=== PATIENT | female | born 1945 | race Caucasian/White ===

== ENCOUNTER → 2016-12-17 | Outpatient (CLI) | payer OTHER | LOC: FIMAGING 15:08 | PROVIDERS: ATTEND Internal Medicine | DX: Z12.31 Encounter for screening mammogram for malignant neoplasm of breast (principal) | CPT/HCPCS: G0202 ==

== ENCOUNTER 2017-02-28 11:04 | Inpatient (IN) | payer OTHER ==
[2017-02-28] MEDS ORDERED: ONDANSETRON 4 MG/2 ML VIAL IVP ONE (11:14)
[2017-02-28] MEDS ORDERED: NS 1,000 ML IV ONE (11:14)
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
[2017-02-28] MEDS ORDERED: methylPREDNISolone SOD SUCC 125 MG/2 ML VIAL IVP ONE (11:19)
--- NOTE | 2017-02-28 11:21 | CPEKG ---
Heart Rate: 52 RR Interval: 1154 P-R Interval: 148 QRSD Interval: 92 QT Interval: 496 QTC Interval: 462 P [place]: 72 QRS [place]: -7 T Wave [place]: 134 EKG Severity - ABNORMAL ECG - EKG Impression: SINUS RHYTHM EKG Impression: LVH WITH SECONDARY REPOLARIZATION ABNORMALITY Electronically Signed By: Fritz Rutherford 28-Feb-2017 11:36:18
[2017-02-28 11:22] LABS: % IMMATURE GRANULYOCYTES 0.2 % (0.0-1.1); ABSOLUTE IMMATURE GRANULOCYTES 0.01 10^3/uL (0.00-0.10); ADD DIFF? NO; ADD MORPH? NO; ADD SCAN? NO; ATYPICAL LYMPHOCYTE FLAG 0 (0-99); FRAGMENT RBC FLAG 20 (0-99); HEMATOCRIT 43.8 % (38.0-47.0); HEMOGLOBIN 13.6 g/dL (12.6-16.3); LEFT SHIFT FLG 0 (0-99); LIPEMIA HEMOLYSIS FLAG 80 (0-99); MEAN CELL HEMOGLOBIN 25.3 pg (27.9-34.1); MEAN CELL HEMOGLOBIN CONCENTR. 31.1 g/dL (32.4-36.7); MEAN CELL VOLUME 81.4 fL (81.5-99.8); MEAN PLATELET VOLUME 10.7 fL (8.7-11.7); PLATELET CLUMPS FLAG 10 (0-99); PLATELET COUNT 201 10^3/uL (150-400); RED BLOOD CELL COUNT 5.38 10^6/uL (4.18-5.33); RED CELL DISTRIBUTION WIDTH 18.6 % (11.5-15.2)
[2017-02-28 11:30] LABS: INR 0.98 (0.83-1.16); PROTIME(PATIENT) 12.9 SEC (12.0-15.0)
[2017-02-28 11:31] LABS: APTT 25.1 SEC (23.0-38.0)
[2017-02-28 11:36] LABS: ALANINE AMINOTRANSFERASE 32 IU/L (9-52); ALBUMIN 4.4 g/dL (3.5-5.0); ALKALINE PHOSPHATASE 214 IU/L (38-126); ANION GAP 18 mEq/L (8-16); ASPARTATE AMINOTRANSFERASE 37 IU/L (14-46); BILIRUBIN,TOTAL 0.7 mg/dL (0.1-1.4); BILIRUBIN-CONJUGATED 0.4 mg/dL (0.0-0.5); BILIRUBIN-UNCONJUGATED 0.3 mg/dL (0.0-1.1); CALCIUM 10.4 mg/dL (8.5-10.4); CARBON DIOXIDE 17 mEq/l (22-31); CHLORIDE 107 mEq/L (97-110); GLOMERULAR FILTRATION RATE 55; GLUCOSE 175 mg/dL (70-100); POTASSIUM 3.6 mEq/L (3.5-5.2); SODIUM 142 mEq/L (134-144); TOTAL PROTEIN 8.5 g/dL (6.3-8.2)
[2017-02-28] MEDS ORDERED: IOPAMIDOL (ISOVUE-300) 100 ML BTL ONE (11:48)
[2017-02-28] MEDS ORDERED: HYDROmorphONE/DILAUDID 1 MG/ML SYR IVP ONE (12:08)
[2017-02-28] MEDS ORDERED: CIPROFLOXACIN 400 MG/DEXTROSE 200 ML IV ONE (12:46)
[2017-02-28] MEDS ORDERED: KETOROLAC 30 MG/1 ML SDV ONE (14:24)
[2017-02-28] MEDS ORDERED: KETOROLAC 30 MG/1 ML SDV IVP ONE (14:26)
[2017-02-28] MEDS ORDERED: ACETAMINOPHEN 325 MG TAB PO PRN (14:52)
[2017-02-28] MEDS ORDERED: HYDROmorphONE/DILAUDID 1 MG/ML SYR IVP PRN (14:52)
[2017-02-28] MEDS ORDERED: ONDANSETRON DISINTEGRATING 4 MG TAB PO PRN (14:52)
[2017-02-28] MEDS ORDERED: ONDANSETRON 4 MG/2 ML VIAL IVP PRN (14:52)
[2017-02-28 15:54] LABS: COLOR YELLOW; LEUKOCYTE ESTERASE,URINE NEGATIVE (NEGATIVE); NITRITE,URINE NEGATIVE (NEGATIVE)
[2017-02-28 16:12] LABS: RBC,URINE NONE SEEN /hpf (0-3)
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
[2017-02-28] MEDS: NS 1,000 ML IV SCH (18:03)
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
[2017-02-28] MEDS ORDERED: amLODIPine BESYLATE 5 MG TAB PO SCH (21:00)
[2017-02-28] MEDS ORDERED: GOLYTELY 4000 ML BTL PO ONE (21:34)
--- NOTE | 2017-02-28 22:14 | SOAPPROG ---
[facility] Progress Note Assessment/Plan: Assessment: Plan: 02/28/17 22:13 GI note Please see dictated consult for details. Will plan on colonoscopy tomorrow. Objective: Vital Signs Temp Pulse Resp BP Pulse Ox 36.8 C 70 16 137/65 H 94 02/28/17 20:34 02/28/17 20:34 02/28/17 20:34 02/28/17 21:23 02/28/17 20:34 02/27/17 02/28/17 03/01/17 05:59 05:59 05:59 Intake Total 1875 Balance 1875 PT 12.9 SEC (12.0-15.0) 02/28/17 11:07 INR 0.98 (0.83-1.16) 02/28/17 11:07 ICD10 Worksheet Patient Problems: Problems Problem Status Onset Cirrhosis Acute C. difficile colitis Acute Diverticulitis large intestine Acute
[2017-03-01 05:03] LABS: % IMMATURE GRANULYOCYTES 0.3 % (0.0-1.1); ABSOLUTE IMMATURE GRANULOCYTES 0.03 10^3/uL (0.00-0.10); ADD DIFF? NO; ADD MORPH? NO; ADD SCAN? NO; ATYPICAL LYMPHOCYTE FLAG 10 (0-99); FRAGMENT RBC FLAG 20 (0-99); HEMATOCRIT 34.9 % (38.0-47.0); HEMOGLOBIN 10.6 g/dL (12.6-16.3); LEFT SHIFT FLG 30 (0-99); LIPEMIA HEMOLYSIS FLAG 80 (0-99); MEAN CELL HEMOGLOBIN 25.2 pg (27.9-34.1); MEAN CELL HEMOGLOBIN CONCENTR. 30.4 g/dL (32.4-36.7); MEAN CELL VOLUME 83.1 fL (81.5-99.8); MEAN PLATELET VOLUME 10.2 fL (8.7-11.7); PLATELET CLUMPS FLAG 0 (0-99); PLATELET COUNT 132 10^3/uL (150-400); RED CELL DISTRIBUTION WIDTH 17.7 % (11.5-15.2)
[2017-03-01 05:21] LABS: ANION GAP 18 mEq/L (8-16); CALCIUM 8.3 mg/dL (8.5-10.4); CARBON DIOXIDE 15 mEq/l (22-31); CHLORIDE 110 mEq/L (97-110); CREATININE 0.9 mg/dL (0.6-1.0); GLOMERULAR FILTRATION RATE > 60; GLUCOSE 233 mg/dL (70-100); SODIUM 143 mEq/L (134-144)
[2017-03-01] MEDS: NS 1,000 ML IV SCH (06:23)
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
[2017-03-01] MEDS ORDERED: ERTAPENEM 1 GM in NS 100 ML IV SCH (09:00)
[2017-03-01] MEDS ORDERED: D50W 25 GM/50 ML SYR IVP PRN (09:28)
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
[2017-03-01] MEDS ORDERED: 1/2 NS 1,000 ML IV SCH (09:45)
[2017-03-01] MEDS: ENOXAPARIN 40 MG/0.4 ML SYR SC SCH (09:57)
[2017-03-01] MEDS: CLOPIDOGREL BISULFATE 75 MG TAB PO SCH (10:08)
[2017-03-01] MEDS: PANTOPRAZOLE SODIUM 40 MG TAB PO SCH (10:09)
[2017-03-01] MEDS ORDERED: INSULIN GLARGINE 100 UNITS/ML SYRINGE SC SCH ×2 (11:00→21:00)
[2017-03-01] MEDS ORDERED: LR 1,000 ML IV ONE (11:25)
[2017-03-01] MEDS ORDERED: PROPOFOL 200 MG/20 ML VIAL ONE (11:48)
--- NOTE | 2017-03-01 11:49 | PDANEPAE ---
ANE History of Present Illness abdominal pain ANE Past Medical History - Pulmonary History Hx Oxygen in Use at Home: No Hx Sleep Apnea: No Sleep Apnea Screening Result - Last Documented: Negative - Endocrine History Hx Diabetes: No - Chronic Pain History Chronic Pain: Yes ANE Patient History - Allergies Allergies/Adverse Reactions: iodine [Iodine] Allergy (Unknown, Verified 03/29/14 19:08) Hives RED DYES Allergy (Unknown, Uncoded 03/29/14 19:08) red pills Allergy (Uncoded 03/29/14 19:08) - Home Medications Home Medications: RX: Clopidogrel Bisulfate [Plavix (*)] 75 mg PO DAILY 03/30/14 [Last Taken 02/28] RX: Lansoprazole [Prevacid] 15 mg PO DAILY 03/30/14 [Last Taken 03/29/14] Acetaminophen [Tylenol ES 500 mg (*)] 1,000 mg PO Q12 PRN 02/28/17 [Last Taken Unknown] Amlodipine Besylate [Norvasc] 5 mg PO HS 02/28/17 [Last Taken 02/27/17] Budesonide [Entocort EC] 3 mg PO DAILY 02/28/17 [Last Taken 02/27/17] Insulin Detemir [Levemir] 18 unit SQ HS 02/28/17 [Last Taken 02/27/17] Insulin Detemir [Levemir] 24 unit SQ DAILY@09 02/28/17 [Last Taken 02/28/17] Insulin Glulisine [Apidra] 0 unit SQ TIDMEAL 02/28/17 [Last Taken Unknown] RX: Lisinopril 30 mg PO DAILY 02/28/17 [Last Taken 02/28/17] - NPO status NPO Since - Liquids (Date): 02/28/17 NPO Since - Liquids (Time): 22:00 NPO Since - Solids (Date): 02/28/17 NPO Since - Solids (Time): 22:00 - Smoking Hx Smoking Status: Never smoked - Alcohol Use Alcohol Use: Sober ANE Labs/Vital Signs - Labs Result Diagrams: 03/01/17 04:52 03/01/17 04:52 - Vital Signs Blood Pressure: 139/69 Heart Rate: 77 Respiratory Rate: 16 O2 Sat (%): 95 Height: 160.02 cm Weight: 66.678 kg ANE Physical Exam - Airway Neck exam: FROM Mallampati Score: Class 2 Mouth exam: normal dental/mouth exam - Pulmonary Pulmonary: no respiratory distress - Cardiovascular Cardiovascular: regular rate and rhythym - ASA Status ASA Status: III ANE Anesthesia Plan Anesthesia Plan: GA with mask
[2017-03-01] MEDS ORDERED: fentaNYL 100 MCG/2 ML INJ IVP PRN (11:56)
[2017-03-01] MEDS ORDERED: PROMETHAZINE HCL 25 MG/ML INJ IVP PRN (11:56)
[2017-03-01] MEDS ORDERED: NALOXONE HCL 0.4 MG/ML INJ IVP PRN (11:56)
[2017-03-01] MEDS ORDERED: NS 500 ML IV SCH (12:30)
--- NOTE | 2017-03-01 12:35 | POSTANESTH ---
Post Anesthetic Evaluation Cardiovascular Status: Normal, Stable Respiratory Status: Normal, Stable Level of Consciousness/Mental Status: Can Participate in Eval Pain Control: Adequate, Prn Tx Ordered Nausea/Vomiting Control: Adequate, Prn Tx Ordered Complications Possibly Related to Anesthesia: None Noted
--- NOTE | 2017-03-01 12:42 | SOAPPROG ---
SOAP Progress Note Assessment/Plan: Assessment: Plan: 02/28/17 22:13 GI note Please see dictated consult for details. Will plan on colonoscopy tomorrow. 03/01/17 12:41 GI note S/p colonoscopy with bx. + ulcers and erythema only in the sigmoid colon. Etiology? Ischemic versus infectious versus other? Self Resolving? Recommend to restart diet. Await biopsy results. Objective: Vital Signs Temp Pulse Resp BP Pulse Ox 37.2 C 77 16 139/69 H 95 03/01/17 11:46 03/01/17 11:49 03/01/17 11:49 03/01/17 11:49 03/01/17 11:49 Laboratory Results 03/01/17 04:52 03/01/17 04:52 02/28/17 03/01/17 03/02/17 05:59 05:59 05:59 Intake Total 7165 Balance 7165 PT 12.9 SEC (12.0-15.0) 02/28/17 11:07 INR 0.98 (0.83-1.16) 02/28/17 11:07 ICD10 Worksheet Patient Problems: Problems Problem Status Onset Cirrhosis Acute C. difficile colitis Acute Diverticulitis large intestine Acute
--- NOTE | 2017-03-01 13:46 | GPN ---
[f rep st] PROCEDURE NOTE DATE OF PROCEDURE: 03/01/2017 PROCEDURE: Colonoscopy with biopsy. INDICATION: The patient is a 71-year-old female who had recent imaging revealing inflammation of the sigmoid colon with luminal narrowing. She also has complaints of LLQ abdominal pain. She presents for further evaluation. CONSENT: Risks, benefits, and alternatives of the procedure were discussed in great detail with the patient. Risk of infection, bleeding, perforation, and sedation were discussed. All questions answered and informed consent was obtained. MEDICATIONS: Propofol. Please see anesthesia record for details. ESTIMATED BLOOD LOSS: Insignificant. COLONOSCOPIC EVALUATION: A rectal exam was done and no palpable mass was appreciated. The Olympus adult colonoscope was introduced into the rectum and advanced to the cecum, where the ileocecal valve and appendiceal orifice were seen. The terminal ileum was normal in appearance and biopsies were taken to rule out colitis. In the sigmoid colon to the ascending colon, multiple large diverticula were noted, which were actually more prominent on the right side of the colon. Random biopsies were taken of normal mucosa in the cecum, ascending colon, transverse colon, descending colon, and rectum. Two polyps were seen in the cecum and ascending colon which measured approximately 2 mm. These were removed by biopsy forceps. In the sigmoid colon, patchy ulcerations with erythema was seen. Biopsies were taken. IMPRESSION: 1. Colitis- sigmoid colon. Etiology? Ischemic versus infectious versus other ? Biopsies were taken. 2. Diverticulosis. 3. Colonic polyps. RECOMMENDATIONS: 1. Await biopsy results. 2. Would start diet. 3. Repeat colonoscopy in 5 years 4. Suspect self-resolving colitis? /[id number]/MODL MTDD
[2017-03-01] MEDS: INSULIN LISPRO 100 UNIT/ML SC SCH ×2 (14:21→18:10)
[2017-03-02 04:40] LABS: % IMMATURE GRANULYOCYTES 0.6 % (0.0-1.1); ABSOLUTE IMMATURE GRANULOCYTES 0.03 10^3/uL (0.00-0.10); ADD DIFF? NO; ADD MORPH? NO; ADD SCAN? NO; ATYPICAL LYMPHOCYTE FLAG 10 (0-99); FRAGMENT RBC FLAG 20 (0-99); HEMATOCRIT 28.3 % (38.0-47.0); HEMOGLOBIN 8.6 g/dL (12.6-16.3); LEFT SHIFT FLG 0 (0-99); LIPEMIA HEMOLYSIS FLAG 80 (0-99); MEAN CELL HEMOGLOBIN 25.1 pg (27.9-34.1); MEAN CELL HEMOGLOBIN CONCENTR. 30.4 g/dL (32.4-36.7); MEAN CELL VOLUME 82.7 fL (81.5-99.8); PLATELET CLUMPS FLAG 0 (0-99); PLATELET COUNT 103 10^3/uL (150-400); RED BLOOD CELL COUNT 3.42 10^6/uL (4.18-5.33); RED CELL DISTRIBUTION WIDTH 18.4 % (11.5-15.2)
[2017-03-02 05:05] LABS: ANION GAP 8 mEq/L (8-16); CALCIUM 7.9 mg/dL (8.5-10.4); CARBON DIOXIDE 22 mEq/l (22-31); CHLORIDE 113 mEq/L (97-110); CREATININE 0.7 mg/dL (0.6-1.0); GLOMERULAR FILTRATION RATE > 60; GLUCOSE 128 mg/dL (70-100); POTASSIUM 3.9 mEq/L (3.5-5.2); SODIUM 143 mEq/L (134-144)
[2017-03-02] MEDS: PANTOPRAZOLE SODIUM 40 MG TAB PO SCH (08:16)
[2017-03-02] MEDS: ENOXAPARIN 40 MG/0.4 ML SYR SC SCH (08:16)
[2017-03-02] MEDS: CLOPIDOGREL BISULFATE 75 MG TAB PO SCH (08:16)
[2017-03-02] MEDS: INSULIN LISPRO 100 UNIT/ML SC SCH ×3 (08:20→18:14)
[2017-03-02] MEDS ORDERED: INSULIN DETEMIR 24 UNIT SQ SCH (09:00)
[2017-03-02] MEDS ORDERED: ERTAPENEM 1 GM in NS 100 ML IV SCH (09:00)
--- NOTE | 2017-03-02 12:19 | SOAPPROG ---
SALONI Progress Note Assessment/Plan: Assessment/Plan: - 71yo F c colitis, now c hematochezia - Reviewed C-scope results from yesterday, no masses but active colitis infection vs ischemic. patient now passing blood per rectum Hb down to 8 from 10 previous. Other than the BRBPR the patient feels well and has been eating and tolerating a regular diet. I anticipate that this blood per rectum will be self limited and resolve. Will cont to follow but dont anticipate she will need operative intervention 03/02/17 12:15 Subjective: Pain much better, now passing blood per rectum which is new Objective: Vital Signs Temp Pulse Resp BP Pulse Ox 36.9 C 60 18 144/67 H 91 L 03/02/17 08:10 03/02/17 08:10 03/02/17 08:10 03/02/17 08:10 03/02/17 08:10 Laboratory Results 03/02/17 04:35 03/02/17 04:35 03/01/17 03/02/17 03/03/17 05:59 05:59 05:59 Intake Total 7165 2160 Output Total 300 Balance 7165 1860 PT 12.9 SEC (12.0-15.0) 02/28/17 11:07 INR 0.98 (0.83-1.16) 02/28/17 11:07 ICD10 Worksheet Patient Problems: Problems Problem Status Onset Diverticulitis large intestine Acute C. difficile colitis Acute Cirrhosis Acute
[2017-03-02 12:54] LABS: % IMMATURE GRANULYOCYTES 1.2 % (0.0-1.1); ABSOLUTE IMMATURE GRANULOCYTES 0.08 10^3/uL (0.00-0.10); ADD DIFF? NO; ADD MORPH? NO; ADD SCAN? NO; ATYPICAL LYMPHOCYTE FLAG 0 (0-99); FRAGMENT RBC FLAG 20 (0-99); HEMATOCRIT 30.6 % (38.0-47.0); HEMOGLOBIN 9.5 g/dL (12.6-16.3); LEFT SHIFT FLG 10 (0-99); LIPEMIA HEMOLYSIS FLAG 80 (0-99); MEAN CELL HEMOGLOBIN 25.5 pg (27.9-34.1); MEAN PLATELET VOLUME 10.9 fL (8.7-11.7); PLATELET CLUMPS FLAG 0 (0-99); PLATELET COUNT 104 10^3/uL (150-400); RED BLOOD CELL COUNT 3.73 10^6/uL (4.18-5.33); RED CELL DISTRIBUTION WIDTH 18.2 % (11.5-15.2)
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
--- NOTE | 2017-03-02 16:37 | SOAPPROG ---
SOCONNER Progress Note Assessment/Plan: Assessment: Plan: 02/28/17 22:13 GI note Please see dictated consult for details. Will plan on colonoscopy tomorrow. 03/01/17 12:41 GI note S/p colonoscopy with bx. + ulcers and erythema only in the sigmoid colon. Etiology? Ischemic versus infectious versus other? Self Resolving? Recommend to restart diet. Await biopsy results. 03/02/17 16:34 A/P 1. Abnormal imaging- with abdominal pain. S/p colonoscopy with patchy erythema and ulcerations noted in sigmoid colon. Biopsies taken and results pending. Ischemic versus infectious versus other? 2. BRBPR- secondary to biopsies. No recent BM. Will monitor. 03/02/17 16:36 Subjective: cc: Follow up abdominal pain Still complaining of pain. No recent BM Objective: Vital Signs Temp Pulse Resp BP Pulse Ox 36.9 C 60 18 144/67 H 91 L 03/02/17 08:10 03/02/17 08:10 03/02/17 08:10 03/02/17 08:10 03/02/17 08:10 Laboratory Results 03/02/17 12:20 03/02/17 04:35 03/01/17 03/02/17 03/03/17 05:59 05:59 05:59 Intake Total 7165 2160 Output Total 300 Balance 7165 1860 PT 12.9 SEC (12.0-15.0) 02/28/17 11:07 INR 0.98 (0.83-1.16) 02/28/17 11:07 Physical Exam - Physical Exam General Appearance: alert, no apparent distress EENT: No scleral icterus (R), No scleral icterus (L) Respiratory: normal breath sounds Cardiac/Chest: regular rate, rhythm Abdomen: soft, No non-tender (tender but improved) Skin: normal color Neuro/Psych: alert, oriented x 3, No abnormal cerebellar tests ICD10 Worksheet Patient Problems: Problems Problem Status Onset Cirrhosis Acute C. difficile colitis Acute Diverticulitis large intestine Acute
[2017-03-03 07:53] VITALS: RESP 16
[2017-03-03] MEDS: ENOXAPARIN 40 MG/0.4 ML SYR SC SCH (08:19)
[2017-03-03] MEDS: PANTOPRAZOLE SODIUM 40 MG TAB PO SCH (08:19)
[2017-03-03] MEDS: CLOPIDOGREL BISULFATE 75 MG TAB PO SCH ×2 (08:19→08:27)
[2017-03-03] MEDS: INSULIN LISPRO 100 UNIT/ML SC SCH ×3 (08:20→12:00)
[2017-03-03] MEDS ORDERED: LISINOPRIL 10 MG TAB PO SCH (09:00)
[2017-03-03] MEDS ORDERED: AMOXICILLIN/CLAVULANATE POT 875/125 MG TAB PO SCH (09:00)
[2017-03-03] MEDS ORDERED: INSULIN DETEMIR 24 UNIT SQ SCH (09:00)
[2017-03-03 11:26] VITALS: PULSE 63; TEMP 97.8; O2SAT 94
--- NOTE | 2017-03-03 11:59 | SOAPPROG ---
SOAP Progress Note Assessment/Plan: Assessment: Plan: 02/28/17 22:13 GI note Please see dictated consult for details. Will plan on colonoscopy tomorrow. 03/01/17 12:41 GI note S/p colonoscopy with bx. + ulcers and erythema only in the sigmoid colon. Etiology? Ischemic versus infectious versus other? Self Resolving? Recommend to restart diet. Await biopsy results. 03/02/17 16:34 A/P 1. Abnormal imaging- with abdominal pain. S/p colonoscopy with patchy erythema and ulcerations noted in sigmoid colon. Biopsies taken and results pending. Ischemic versus infectious versus other? 2. BRBPR- secondary to biopsies. No recent BM. Will monitor. 03/02/17 16:36 03/03/17 11:56 A/P 1. Abnormal imaging- with thickening in sigmoid colon. S/p colonoscopy with patchy erythema with ulcerations. Etiology? Infectious versus inflammatory versus ischemic versus other? Clinically improving. Will await biopsy results. On diet. GI will sign off. Thank you for the consultation! Subjective: cc: Abdominal pain Feeling better. Still having pain. + BM. Tolerating diet. Objective: Vital Signs Temp Pulse Resp BP Pulse Ox 36.6 C 63 16 179/74 H 94 03/03/17 11:25 03/03/17 11:25 03/03/17 11:25 03/03/17 11:25 03/03/17 11:25 Laboratory Results 03/02/17 12:20 03/02/17 04:35 03/02/17 03/03/17 03/04/17 05:59 05:59 05:59 Intake Total 2160 1600 Output Total 300 1000 Balance 1860 600 PT 12.9 SEC (12.0-15.0) 02/28/17 11:07 INR 0.98 (0.83-1.16) 02/28/17 11:07 Physical Exam - Physical Exam General Appearance: alert, no apparent distress EENT: No scleral icterus (R), No scleral icterus (L) Respiratory: lungs clear, normal breath sounds Cardiac/Chest: regular rate, rhythm Abdomen: normal bowel sounds, non-tender, soft, No distended, No guarding, No rebound Neuro/Psych: no motor/sensory deficits, alert, normal mood/affect, oriented x 3 , No abnormal 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 difficile colitis Acute Diverticulitis large intestine Acute
[2017-03-03 12:18] VITALS: BP 175/76
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
== END 2017-03-03 12:58 | disposition home or self-care (01) | DRG 394 ==
LOC: EDUNIT# → F1N 16:11
PROVIDERS: ADMIT Hospitalist; ATTEND Hospitalist
PROC: 0DBP8ZX Excision of Rectum, Via Natural or Artificial Opening Endoscopic, Diagnostic (ICD-10-PCS; principal; 2017-03-01 12:15)
PROC: 0DBM8ZX Excision of Descending Colon, Via Natural or Artificial Opening Endoscopic, Diagnostic (ICD-10-PCS; principal; 2017-03-01 12:15)
PROC: 0DBL8ZX Excision of Transverse Colon, Via Natural or Artificial Opening Endoscopic, Diagnostic (ICD-10-PCS; principal; 2017-03-01 12:15)
PROC: 0DBK8ZX Excision of Ascending Colon, Via Natural or Artificial Opening Endoscopic, Diagnostic (ICD-10-PCS; principal; 2017-03-01 12:15)
PROC: 0DBH8ZX Excision of Cecum, Via Natural or Artificial Opening Endoscopic, Diagnostic (ICD-10-PCS; principal; 2017-03-01 12:15)
PROC: 0DBB8ZX Excision of Ileum, Via Natural or Artificial Opening Endoscopic, Diagnostic (ICD-10-PCS; principal; 2017-03-01 12:15)
DX: K55.9 Vascular disorder of intestine, unspecified (principal); A09 Infectious gastroenteritis and colitis, unspecified; E87.2 Acidosis; D62 Acute posthemorrhagic anemia; K86.1 Other chronic pancreatitis; K91.840 Postprocedural hemorrhage of a digestive system organ or structure following a digestive system procedure; I35.0 Nonrheumatic aortic (valve) stenosis; I48.0 Paroxysmal atrial fibrillation; K57.90 Diverticulosis of intestine, part unspecified, without perforation or abscess without bleeding; K72.90 Hepatic failure, unspecified without coma; K75.81 Nonalcoholic steatohepatitis (NASH); I25.10 Atherosclerotic heart disease of native coronary artery without angina pectoris; M32.9 Systemic lupus erythematosus, unspecified; E11.9 Type 2 diabetes mellitus without complications; J45.909 Unspecified asthma, uncomplicated; D69.6 Thrombocytopenia, unspecified; I10 Essential (primary) hypertension; K63.5 Polyp of colon; Z79.02 Long term (current) use of antithrombotics/antiplatelets; Z79.4 Long term (current) use of insulin
CPT/HCPCS: 82947-QW; 96365; J0744; J1170; J1200; J1335; J1650; J1815; J1885; J2405; J2704; Q9967

== ENCOUNTER → 2017-08-02 | Outpatient (CLI) | payer OTHER | LOC: FIMAGING 07:56 | PROVIDERS: ATTEND Internal Medicine | DX: K74.69 Other cirrhosis of liver (principal) ==

== ENCOUNTER → 2018-04-05 | Outpatient (CLI) | payer OTHER | LOC: FIMAGING 10:05 | PROVIDERS: ATTEND Internal Medicine | DX: R41.9 Unspecified symptoms and signs involving cognitive functions and awareness (principal); R51 Headache; I10 Essential (primary) hypertension; Z86.73 Personal history of transient ischemic attack (TIA), and cerebral infarction without residual deficits ==

== ENCOUNTER 2018-05-08 11:47 | Day surgery (SDC) | payer OTHER ==
[2018-05-08] MEDS ORDERED: NS 500 ML IV ONE (12:28)
[2018-05-08] MEDS ORDERED: fentaNYL 100 MCG/2 ML INJ IVP ONE (12:28)
[2018-05-08] MEDS ORDERED: BENZOCAINE UNIT DOSE SPRAY HURRICAINE MM ONE (12:28)
[2018-05-08] MEDS ORDERED: MIDAZOLAM 2 MG/2 ML VIAL IVP ONE (12:28)
--- NOTE | 2018-05-08 14:22 | PDHPUP ---
History & Physical Update H&P update statement: This history and physical update is based on an assessment of the patient which was completed after admission or registration (within 24 hours), but prior to the surgery/procedure. H&P update: H&P reviewed & patient examined, no change in patient's condition since H&P completed (Reviewed my office note dated 05/01/2018)
--- NOTE | 2018-05-08 14:26 | PDANEPAE ---
ANE History of Present Illness YANIRA ANE Past Medical History - Cardiovascular History Hx Hypertension: Yes Hx Coronary Artery / Peripheral Vascular Disease: Yes - Pulmonary History Hx Oxygen in Use at Home: No Hx Sleep Apnea: No - Endocrine History Hx Diabetes: Yes - Liver History Hx Hepatic Disorders: Yes Hepatic History Comment: end stage - GI History Gastrointestinal History Comment: colitis - Chronic Pain History Chronic Pain: Yes ANE Review of Systems Review of systems is: negative Review of Systems: ANE Patient History - Allergies Allergies/Adverse Reactions: iodine [Iodine] Allergy (Unknown, Verified 03/29/14 19:08) Hives RED DYES Allergy (Unknown, Uncoded 03/29/14 19:08) red pills Allergy (Uncoded 03/29/14 19:08) - Home Medications Home medications: home medication list seen and reviewed Home Medications: Acetaminophen [Tylenol ES 500 mg (*)] 1,000 mg PO Q12 PRN 02/28/17 [Last Taken Unknown] Amlodipine Besylate [Norvasc] 2.5 mg PO HS 02/28/17 [Last Taken 05/07/18 08:00] Budesonide [Entocort EC] 3 mg PO DAILY 02/28/17 [Last Taken 02/27/17] Aspirin 81 mg PO DAILY 05/08/18 [Last Taken 05/07/18 08:00] Benadryl 25 mg PO Q6 PRN 05/08/18 [Last Taken 05/07/18 16:00] Levemir Flextouch 22 units SQ DAILY 05/08/18 [Last Taken 05/07/18 18:00] Levemir Flextouch 24 units SQ DAILY 05/08/18 [Last Taken Unknown] Losartan Potassium 25 mg PO DAILY 05/08/18 [Last Taken 05/05/18 08:00] - NPO status NPO Status: no food or drink >8 hours - Anes Hx Anes Hx: no prior problems - Smoking Hx Smoking Status: Never smoked - Alcohol Use Alcohol Use: None ANE Labs/Vital Signs - Vital Signs Vital Signs: reviewed preoperatively; see RN documention for details Height: 157 cm Weight: 68 kg ANE Physical Exam - Airway Neck exam: FROM Mallampati Score: Class 1 Mouth exam: normal dental/mouth exam - Pulmonary Pulmonary: no respiratory distress - Cardiovascular Cardiovascular: regular rate and rhythym - ASA Status ASA Status: IV ANE Anesthesia Plan Total IV Anesthesia: Yes Urgent/Emergent Case: Anes eval completed preop but documented later for safe timely pt care
[2018-05-08] MEDS ORDERED: PROPOFOL 200 MG/20 ML VIAL ONE (14:31)
--- NOTE | 2018-05-08 15:11 | POSTANESTH ---
Post Anesthetic Evaluation Cardiovascular Status: Similar to Pre-Op Cond Respiratory Status: Similar to Pre-op Cond. Level of Consciousness/Mental Status: Can Participate in Eval, Moderately Sleepy Pain Control: Adequate, Prn Tx Ordered Nausea/Vomiting Control: Adequate, Prn Tx Ordered Complications Possibly Related to Anesthesia: None Noted
--- NOTE | 2018-05-08 17:42 | ECHO ---
[email or web address] [address] [address] Main: [phone] Fax: Transesophageal Echocardiography Name: OBED FONG MR#: [id number] Study Date: 05/08/2018 Study Time: 02:35 PM Date of : 1945 Age: 72 year(s) Height: ( ) Weight: ( ) BSA: Gender: Female Examination: YANIRA Indication: CVA; source of emboli Image Quality: Adequate Contrast: I.V. dose of agitated saline Requested by: Kaley Ayala Heart Rate: Rhythm: BP: 107 mmHg/63 mmHg Procedure Staff Compliance Coordinator: Raya Dee [facility] Reading Physician: Kaley Ayala MD Requesting Provider: YANIRA Exam Details Contrast: I.V. dose of agitated saline Conclusions: The left ventricle cavity is small. Moderate concentric LV hypertrophy. Normal global systolic LV function. An agitated saline study was performed and was negative for intracardiac shunting. No thrombus is noted in the left atrium. Patient has a surgically repaired atrial septal defect. No thrombus in left appendage. Trivial mitral valve regurgitation. Mild aortic cusp calcification is noted. Mild aortic valve regurgitation is present. Velocity across the aortic valve is 3.7m/s, 25/54 mmHg mean/max pressure gradient and NDSI=.33. The above data is consistent with moderate aortic stenosis. Mild tricuspid regurgitation is present. No cardiac source of embolism seen on this study Measurements: Chambers Valvular Assessment AV/MV Valvular Assessment TV/PV Normal Normal Normal Name Value Range Name Value Range Name Value Range LVOTd 1.8 cm 1.8 cm mm AV Vmax: 3.66 m/s (1 m/s-1.7 TR Vmax: 2.00 mm/s ( - ) m/s) TR PGmax: 16 mmHg ( - ) AV maxP mmHg ( - ) AV meanP mmHg ( - ) ДМИТРИЙ (VTI): 0.8 cm ( - ) Patient: OBED FONG Study Date: 05/08/2018 Page 1 of 2 02:35 PM Additional Measurements: Findings: Left Ventricle: The left ventricle cavity is small. Moderate concentric LV hypertrophy. Normal global systolic LV function. Left Atrium: An agitated saline study was performed and was negative for intracardiac shunting. No thrombus is noted in the left atrium. Patient has a surgically repaired atrial septal defect. Left Atrial Appendage: No thrombus in left appendage. Right Atrium: No thrombus in right atrium. Mitral Valve: The mitral valve is normal in appearance and function. Trivial mitral valve regurgitation. Aortic Valve: The aortic valve is tri-leaflet. Mild aortic cusp calcification is noted. Mild aortic valve regurgitation is present. Velocity across the aortic valve is 3.7m/s, 25/54 mmHg mean/max pressure gradient and NDSI=.33. The above data is consistent with moderate aortic stenosis. Tricuspid Valve: The tricuspid valve is normal in appearance and function. Mild tricuspid regurgitation is present. Pulmonic Valve: There is no pulmonic regurgitation seen. Pericardium: No pericardial effusion. l1n (No Signature Object) Patient: OBED FONG Study Date: 05/08/2018 Page 2 of 2 02:35 PM [id number]
== END 2018-05-08 16:05 | disposition home or self-care (01) ==
LOC: FCATH 11:47
PROVIDERS: ATTEND Internal Medicine Cardiovascular Disease
PROC: B246ZZ4 Ultrasonography of Right and Left Heart, Transesophageal (ICD-10-PCS; principal; 2018-05-08)
DX: Z86.73 Personal history of transient ischemic attack (TIA), and cerebral infarction without residual deficits (principal); I35.0 Nonrheumatic aortic (valve) stenosis; R53.83 Other fatigue; I48.92 Unspecified atrial flutter; I67.9 Cerebrovascular disease, unspecified; E78.5 Hyperlipidemia, unspecified; I10 Essential (primary) hypertension; I77.9 Disorder of arteries and arterioles, unspecified; E11.9 Type 2 diabetes mellitus without complications; K21.9 Gastro-esophageal reflux disease without esophagitis; Z79.82 Long term (current) use of aspirin
CPT/HCPCS: J2704

== ENCOUNTER 2018-06-18 07:40 | Day surgery (SDC) | payer OTHER ==
[2018-06-18] MEDS ORDERED: LIDOCAINE 1% 300 MG/30 ML SDV SC ONE (07:47)
--- NOTE | 2018-06-18 10:47 | CPIP ---
DATE OF PROCEDURE: 06/18/2018 PROCEDURE PERFORMED: LINQ insertion INDICATION: Cryptogenic stroke and history of bradycardia. Evaluate for occult atrial fibrillation. COMPLICATIONS: None. DESCRIPTION OF PROCEDURE: Informed consent was obtained. The patient was prepped and draped in ster ile fashion. 1% lidocaine was used for local anesthesia over the left parasternal region. Using sta ndard technique, a Medtronic LINQ device was inserted and the incision was closed with [address] erile dressing applied. CONCLUSION: 1. Successful Medtronic LINQ insertion. Serial #[id number]. 2. Patient will return to the office in 1 week for staple removal. 3. R waves transmitting at 1.1 mV. 4. Patient currently in stable condition. /[id number]/MODL
== END 2018-06-18 10:00 | disposition home or self-care (01) ==
LOC: FCATH 07:40
PROVIDERS: ATTEND Internal Medicine Cardiovascular Disease
PROC: 0JH630Z Insertion of Hemodynamic Monitoring Device into Chest Subcutaneous Tissue and Fascia, Percutaneous Approach (ICD-10-PCS; principal; 2018-06-18)
DX: R00.1 Bradycardia, unspecified (principal); Z86.73 Personal history of transient ischemic attack (TIA), and cerebral infarction without residual deficits
CPT/HCPCS: C1764

== ENCOUNTER → 2018-06-21 | Outpatient (CLI) | payer OTHER ==
[~2018-06-21] MED LIST: IOPAMIDOL (ISOVUE 370) 100 ML BTL IV ONE
== END ==
LOC: FIMAGING 15:08
PROVIDERS: ATTEND Surgery
DX: I65.23 Occlusion and stenosis of bilateral carotid arteries (principal)
CPT/HCPCS: 70498; Q9967; 82565-PO

== ENCOUNTER 2018-07-05 08:47 | Inpatient (IN) | payer OTHER ==
[2018-07-05] MEDS ORDERED: THROMBIN (BOVINE) 20,000 UNIT SPRAY TP ONE (08:50)
[2018-07-05] MEDS ORDERED: PROTAMINE SULFATE 50 MG/5 ML VIAL IVP ONE (08:50)
[2018-07-05] MEDS ORDERED: BUPIVACAINE 0.5% 30 ML SDV ONE (08:50)
[2018-07-05] MEDS ORDERED: MIDAZOLAM 2 MG/2 ML VIAL IVP ONE (09:12)
--- NOTE | 2018-07-05 09:49 | PDANEPAE ---
ANE History of Present Illness recent h/o stroke 2/2 right carotid disease. no residual deficits ANE Past Medical History - Cardiovascular History Hx Hypertension: Yes Hx Arrhythmias: Yes Hx Chest Pain: No Hx Coronary Artery / Peripheral Vascular Disease: Yes Hx CHF / Valvular Disease: Yes Hx Palpitations: No Cardiovascular History Comment: hx of aflutter/ afib. hx of pauses and bradycardia, LINQ monitor in place. CAD. hyperlipidemia. aortic stenosis. atrial septal defect repaired 1977 - Pulmonary History Hx COPD: No Hx Asthma/Reactive Airway Disease: Yes Hx Recent Upper Respiratory Infection: No Hx Oxygen in Use at Home: No Hx Sleep Apnea: No Sleep Apnea Screening Result - Last Documented: Negative Pulmonary History Comment: hx of asthma- patient denies any resp issues currently - Neurologic History Hx Cerebrovascular Accident: Yes Hx Seizures: No Hx Dementia: No Neurologic History Comment: mini stroke in april. CVA 04/03/18. followed by neurologist - Endocrine History Hx Diabetes: Yes Hypothyroid: No Hyperthyroid: No Obesity: no Endocrine History Comment: DM 2 on insulin - Renal History Hx Renal Disorders: Yes Renal History Comment: hx of adrenal adenoma followed by Dr. Hoskins - Liver History Hx Hepatic Disorders: Yes Hepatic History Comment: cirrhosis. fatty liver - Neurological & Psychiatric Hx Hx Neurological and Psychiatric Disorders: No - Cancer History Hx Cancer: No - Congenital Disorder History Hx Congenital Disorders: No - GI History Hx Gastrointestinal Disorders: Yes Gastrointestinal History Comment: hx of colonoscopy with Raju. diverticulitis. GERD - Other Health History Other Health History: eczema patch on cheek- has been seen by director stage. lupus. hx of anemia - Chronic Pain History Chronic Pain: Yes - Surgical History Prior Surgeries: 06/18/18 linq monitor placed with Ayala. 05/08/18 YANIRA with Ayala. 02/28/17 colonoscopy with Raju. 06/14/10 EP studies with Keiry. 05/23/10 YANIRA/ CV with Keiry. 02/09/10 YANIRA/ CV with Marcelo. 02/16/09 YANIRA/ CV with Marcelo. atrial septal defect repair 1977. appy. arnold. SOHAM/ BSO 1985 ANE Review of Systems Review of systems is: negative Review of Systems: - Exercise capacity Exercise capacity: >=4 METS METS (RN): 3 METS ANE Patient History - Allergies Allergies/Adverse Reactions: iodine [Iodine] Allergy (Unknown, Verified 07/04/18 16:45) Hives RED DYES Allergy (Unknown, Uncoded 07/04/18 16:45) red pills Allergy (Uncoded 07/04/18 16:45) - Home Medications Home medications: home medication list seen and reviewed Home Medications: Acetaminophen [Tylenol ES 500 mg (*)] 1,000 mg PO Q12 PRN 02/28/17 [Last Taken 07/04/18] Aspirin [Aspirin 81mg (*)] 81 mg PO DAILY 05/08/18 [Last Taken 07/04/18] Insulin Detemir [Levemir] 18 unit SQ DAILY 05/08/18 [Last Taken 07/05/18 06:30] Insulin Detemir [Levemir] 22 unit SQ DAILY18 05/08/18 [Last Taken 07/04/18 18:00 ] Losartan Potassium [Cozaar 25 mg (*)] 25 mg PO DAILY 05/08/18 [Last Taken 06:30] Pravastatin Sodium [Pravachol] 10 mg PO DAILY 07/04/18 [Last Taken 07/05/18 06: 30] amLODIPine BESYLATE [Norvasc 2.5 mg (*)] 5 mg PO DAILY 07/04/18 [Last Taken 06:30] - NPO status NPO Status: no food or drink >8 hours NPO Since - Liquids (Date): 07/05/18 NPO Since - Liquids (Time): 06:30 NPO Since - Solids (Date): 07/04/18 NPO Since - Solids (Time): 19:00 - Anes Hx Anes Hx: no prior problems - Smoking Hx Smoking Status: Never smoked - Family Anes Hx Family Anes Hx: none Family Hx Anesthesia Complications: none ANE Labs/Vital Signs - Labs Result Diagrams: 07/05/18 10:00 07/05/18 10:00 - Vital Signs Vital Signs: reviewed preoperatively; see RN documention for details Blood Pressure: 147/77 Heart Rate: 65 Respiratory Rate: 14 O2 Sat (%): 98 Height: 160.02 cm Weight: 68.039 kg ANE Physical Exam - Airway Neck exam: FROM Mallampati Score: Class 2 Mouth exam: normal dental/mouth exam - Pulmonary Pulmonary: no respiratory distress - Cardiovascular Cardiovascular: regular rate and rhythym, systolic murmur - ASA Status ASA Status: IV ANE Anesthesia Plan Anesthesia Plan: general endotracheal anesthesia Lines/Monitors: arterial line
[2018-07-05 10:15] LABS: PLATELET COUNT 117 10^3/uL (150-400)
--- NOTE | 2018-07-05 10:39 | PDHPUP ---
History & Physical Update H&P update statement: This history and physical update is based on an assessment of the patient which was completed after admission or registration (within 24 hours), but prior to the surgery/procedure. H&P update: H&P reviewed & patient examined, no change in patient's condition since H&P completed
[2018-07-05] MEDS ORDERED: ceFAZolin 2 GM/DEXTROSE 100 ML IV ONE (10:43)
[2018-07-05] MEDS ORDERED: LIDOCAINE 1% 2 ML INJ ID PRN (10:46)
[2018-07-05] MEDS ORDERED: LR 1,000 ML IV ONE (10:46)
[2018-07-05] MEDS ORDERED: fentaNYL 250 MCG/5 ML INJ ONE (10:56)
[2018-07-05] MEDS ORDERED: PROPOFOL 200 MG/20 ML VIAL ONE (10:56)
[2018-07-05] MEDS ORDERED: HEPARIN 10,000 UNIT/10 ML MDV (1,000 UNIT/ML) ONE (11:01)
[2018-07-05] MEDS ORDERED: DEXAMETHASONE 4 MG/ML VIAL ONE (11:01)
[2018-07-05] MEDS ORDERED: ROCURONIUM 50 MG/5 ML VIAL ONE (11:01)
[2018-07-05] MEDS ORDERED: ONDANSETRON 4 MG/2 ML VIAL ONE (11:02)
[2018-07-05] MEDS ORDERED: PHENYLEPHRINE 10 MG/ML SDV ONE (11:03)
[2018-07-05] MEDS ORDERED: LIDOCAINE 2% 5 ML SDV ONE (11:11)
[2018-07-05] MEDS ORDERED: NEOSTIGMINE METHYLSULFATE 5 MG/5 ML SYR ONE (12:43)
[2018-07-05] MEDS ORDERED: MEPERIDINE 25 MG/0.5 ML AMP IVP PRN (12:46)
[2018-07-05] MEDS ORDERED: HYDROmorphONE/DILAUDID 2 MG/ML INJ IVP PRN (12:46)
[2018-07-05] MEDS ORDERED: NALOXONE HCL 0.4 MG/ML INJ IVP PRN (12:46)
[2018-07-05] MEDS ORDERED: PHENYLEPHRINE HCL 100 MCG/ML SYR IVP PRN (12:46)
[2018-07-05] MEDS ORDERED: LABETALOL HCL 5 MG/ML 20 ML MDV IVP PRN (12:46)
[2018-07-05] MEDS ORDERED: fentaNYL 100 MCG/2 ML INJ IVP PRN (12:46)
[2018-07-05] MEDS ORDERED: PROMETHAZINE HCL 25 MG/ML INJ IVP PRN (12:46)
[2018-07-05] MEDS ORDERED: METOCLOPRAMIDE 10 MG/2 ML VIAL IVP PRN (12:46)
[2018-07-05] MEDS ORDERED: LR 500 ML IV PRN (12:46)
[2018-07-05] MEDS ORDERED: ALBUTEROL 3 ML DEYVIAL IH PRN (12:46)
[2018-07-05] MEDS ORDERED: oxyCODONE IR 5 MG TAB PO PRN (13:18)
[2018-07-05] MEDS ORDERED: ONDANSETRON DISINTEGRATING 4 MG TAB PO PRN (13:19)
[2018-07-05] MEDS ORDERED: fentaNYL 100 MCG/2 ML INJ ONE (14:07)
--- NOTE | 2018-07-05 14:13 | PDMN ---
Medical Necessity Medical necessity: Pt meets inpt criteria per MD order and [facility] S-[facility], Carotid Endarterectomy, Medicare inpt only list. 72 y/o w/bilateral carotid stenosis admitted for R CEA and post-op care.
[2018-07-05] MEDS ORDERED: oxyCODONE IR 5 MG TAB ONE (14:16)
[2018-07-05] MEDS ORDERED: ACETAMINOPHEN 325 MG TAB ONE (14:16)
[2018-07-05] MEDS: ACETAMINOPHEN 325 MG TAB PO PRN (14:17)
[2018-07-05] MEDS: HYDROmorphONE/DILAUDID 1 MG/ML INJ IVP PRN ×3 (15:20→23:27)
[2018-07-05] MEDS ORDERED: ATROPINE SULFATE 1 MG/10 ML SYR ONE (16:01)
[2018-07-05] MEDS: ASPIRIN 81 MG CHEWABLE TAB PO SCH (16:10)
--- NOTE | 2018-07-06 07:16 | GOP ---
DATE OF OPERATION: 07/05/2018 SURGEON: Hu Stein MD MANUFACTURING SCHEDULER: Lavinia Gayle NP ANESTHESIA: General endotracheal. PREOPERATIVE DIAGNOSIS: Critical right carotid stenosis with a history of multiple left-sided cerebrovascular accidents. POSTOPERATIVE DIAGNOSIS: Critical right carotid stenosis with a history of multiple left-sided cerebrovascular accidents. PROCEDURE PERFORMED: right carotid endarterectomy with EEG monitoring and intraoperative shunt placement. FINDINGS: 75% blockage right internal carotid origin/ no eeg changes/ awoke neuro intact DESCRIPTION OF PROCEDURE: Patient taken to the operating room where she received satisfactory general endotracheal anesthesia. She was placed in supine position, prepped and draped in usual sterile fashion. She had been systemically heparinized prior to induction of general anesthesia. Dissection extended down through the platysma and subcutaneous tissue and then through the cervical fascia. The carotid arterial tree was exposed. The common facial vein was doubly ligated and divided exposing the bifurcation. Common carotid, external carotid, and internal carotid arteries were all mobilized and encircled with vessel loops. After adequate exposure, the patient was given additional heparin and after adequate circulation time, vessels were occluded with vessel loops. Arteriotomy was made in the common carotid artery extending up through the tight plaque into the internal carotid artery. A shunt was then placed as the patient had marginal backflow and a history of CVA already. A shunt was quickly put in place and flow was reestablished. An endarterectomy was then done expeditiously with a good feathered end being obtained. All debris was irrigated free or removed from the inside of the vessel. A Dacron patch was then placed over the arteriotomy and sutured in place with a running Hemashield 7 suture. When the arteriotomy was mostly complete, the shunt was crossclamped and removed and all vessels were flushed. Arteriotomy was then quickly completed and flow was then established first through the external carotid artery and then through the internal carotid. She had no EEG changes or major problems and had a good pulse and flow in the internal carotid artery. Hemostasis was assured. The wound was closed in layers using 3-0 Vicryl for the cervical fascia, 3-0 Vicryl for the platysma and subcutaneous tissue, and 4-0 Monocryl subcuticular stitch for the skin. She was taken to the recovery room in good condition. She awoke neurologically intact with no complications. /[id number]/MODL MTDD
[2018-07-06] MEDS ORDERED: LOSARTAN POTASSIUM 25 MG TAB PO SCH (09:00)
[2018-07-06] MEDS ORDERED: amLODIPine BESYLATE 5 MG TAB PO SCH (09:00)
[2018-07-06] MEDS: PRAVASTATIN SODIUM 10 MG TAB PO SCH ×2 (09:32→09:36)
[2018-07-06] MEDS: ASPIRIN 81 MG CHEWABLE TAB PO SCH (09:32)
--- NOTE | 2018-07-06 10:01 | SOAPPROG ---
SOAP Progress Note Assessment/Plan: Assessment: 72 y/o F s/p R CEA for carotid stenosis and multiple CVAs POD #1 Found to have R upper lip lac and surrounding bruising after surgery. S: Upset about injury and bruising to her lip. Has discussed case with patient advocate. Otherwise no complaints. Incisional pain well controlled. O: Alert Afebrile VSS Face: hematoma on right upper lip with surrounding ecchymosis Neck: incision cdi, no surrounding erythema, warmth, or induration Neuro: Cranial nerves 2-12 are grossly intact Plan: Patient advocate to discuss case with anesthesia. Dispo home later today. Continue asa. 07/06/18 09:56 Objective: Vital Signs Temp Pulse Resp BP Pulse Ox 36.7 C 60 18 135/58 H 99 07/06/18 08:00 07/06/18 08:00 07/06/18 08:00 07/06/18 08:00 07/06/18 08:00 Laboratory Results 07/05/18 10:00 07/05/18 10:00 07/05/18 07/06/18 07/07/18 05:59 05:59 05:59 Intake Total 1870 Output Total 625 Balance 1245 ICD10 Worksheet Patient Problems: Problems Problem Status Onset C. difficile colitis Acute Cirrhosis Acute Diverticulitis large intestine Acute
[2018-07-06 10:07] VITALS: BP 116/54
[2018-07-06] MEDS: ACETAMINOPHEN 325 MG TAB PO PRN (10:42)
--- NOTE | 2018-07-06 10:48 | POSTANESTH ---
Post Anesthetic Evaluation Cardiovascular Status: Normal, Stable Respiratory Status: Normal, Stable Level of Consciousness/Mental Status: Can Participate in Eval Pain Control: Adequate, Prn Tx Ordered Nausea/Vomiting Control: Adequate, Prn Tx Ordered Complications Possibly Related to Anesthesia: Other, See Comments (Pt noted to have right lip bruising and swelling after drapes came off. Also noticed multiple bruises on tongue. Given patient's hx of being on anticoagulation and cirrhosis, patient tends to bruise very easily. Lip swelling most likely from pressure placed from retraction during CEA. Tongue bruising most likely from small amount of pressure from ETT.)
== END 2018-07-06 11:50 | disposition home or self-care (01) | DRG 39 ==
LOC: F2W 08:47 → F2N 10:24
PROVIDERS: ADMIT Surgery; ATTEND Surgery
PROC: 03CK0ZZ Extirpation of Matter from Right Internal Carotid Artery, Open Approach (ICD-10-PCS; principal; 2018-07-05 10:30)
DX: I65.23 Occlusion and stenosis of bilateral carotid arteries (principal); I69.319 Unspecified symptoms and signs involving cognitive functions following cerebral infarction; E11.9 Type 2 diabetes mellitus without complications; L93.0 Discoid lupus erythematosus; I10 Essential (primary) hypertension
CPT/HCPCS: C1768; J0461; J0690; J1100; J1170; J1644; J2250; J2370; J2405; J2704; J2710; J2720; J3010

== ENCOUNTER 2018-07-24 10:02 | Inpatient (IN) | payer OTHER ==
[2018-07-24] MEDS ORDERED: ceFAZolin 2 GM/DEXTROSE 100 ML IV ONE (10:41)
--- NOTE | 2018-07-24 11:15 | PDHPUP ---
History & Physical Update H&P update statement: This history and physical update is based on an assessment of the patient which was completed after admission or registration (within 24 hours), but prior to the surgery/procedure. H&P update: H&P reviewed & patient examined, no change in patient's condition since H&P completed H&P changes: s/p R CEA, now here for L CEA
[2018-07-24] MEDS ORDERED: LIDOCAINE 1% 2 ML INJ ONE (11:20)
[2018-07-24] MEDS ORDERED: LR 1,000 ML IV ONE (11:53)
[2018-07-24] MEDS ORDERED: LIDOCAINE 1% 2 ML INJ ID PRN (11:53)
[2018-07-24] MEDS ORDERED: BUPIVACAINE 0.5% 30 ML SDV ONE (12:24)
[2018-07-24] MEDS ORDERED: PROTAMINE SULFATE 50 MG/5 ML VIAL IVP ONE (12:24)
[2018-07-24] MEDS ORDERED: THROMBIN (BOVINE) 20,000 UNIT SPRAY TP ONE (12:24)
[2018-07-24] MEDS ORDERED: PROPOFOL 200 MG/20 ML VIAL ONE (12:36)
[2018-07-24] MEDS ORDERED: ROCURONIUM 50 MG/5 ML VIAL ONE (12:38)
[2018-07-24] MEDS ORDERED: ONDANSETRON 4 MG/2 ML VIAL ONE (12:38)
[2018-07-24] MEDS ORDERED: LIDOCAINE 2% 5 ML SDV ONE (12:38)
[2018-07-24] MEDS ORDERED: DEXAMETHASONE 4 MG/ML VIAL ONE ×2 (12:38)
[2018-07-24] MEDS ORDERED: fentaNYL 250 MCG/5 ML INJ ONE (12:40)
--- NOTE | 2018-07-24 13:48 | PDANEPAE ---
ANE History of Present Illness carotid stenosis, here for L CTA after R 3-4 weeks ago ANE Past Medical History - Cardiovascular History Hx Hypertension: Yes Hx Arrhythmias: Yes Hx Chest Pain: No Hx Coronary Artery / Peripheral Vascular Disease: Yes Hx CHF / Valvular Disease: Yes Hx Palpitations: No Cardiovascular History Comment: hx of aflutter/ afib. hx of pauses and bradycardia, LINQ monitor in place. CAD. hyperlipidemia. aortic stenosis. atrial septal defect repaired 1977 - Pulmonary History Hx COPD: No Hx Asthma/Reactive Airway Disease: No Hx Recent Upper Respiratory Infection: No Hx Oxygen in Use at Home: No Hx Sleep Apnea: No Sleep Apnea Screening Result - Last Documented: Negative Pulmonary History Comment: hx of asthma- patient denies any resp issues currently - Neurologic History Hx Cerebrovascular Accident: Yes Hx Seizures: No Hx Dementia: No Neurologic History Comment: mini stroke in april. CVA 04/03/18. followed by neurologist - Endocrine History Hx Diabetes: Yes Endocrine History Comment: DM 2 on insulin - Renal History Hx Renal Disorders: Yes Renal History Comment: poss hx of adrenal adenoma - Liver History Hx Hepatic Disorders: Yes Hepatic History Comment: cirrhosis. fatty liver - Neurological & Psychiatric Hx Hx Neurological and Psychiatric Disorders: No - Cancer History Hx Cancer: No - Congenital Disorder History Hx Congenital Disorders: No - GI History Hx Gastrointestinal Disorders: Yes Gastrointestinal History Comment: hx of colonoscopy with Rajzee. diverticulitis. HX GERD - Other Health History Other Health History: eczema patch on cheek- has been seen by emergency communications dispatcher. lupus. hx of anemia - Chronic Pain History Chronic Pain: Yes - Surgical History Prior Surgeries: 06/2018 R CEA. 06/18/18 linq monitor placed with Ayala. YANIRA with Ayala. 02/28/17 colonoscopy with Raju. 06/14/10 EP studies with Keiry. 05/23/10 YANIRA/ CV with Keiry. 02/09/10 YANIRA/ CV with Marcelo. 02/16/09 YAINRA/ CV with Marcelo. atrial septal defect repair 1977. appy. arnold. SOHAM/ JANE 1985 ANE Review of Systems Review of Systems: - Exercise capacity METS (RN): 4 METS ANE Patient History - Allergies Allergies/Adverse Reactions: Iodinated Contrast- Oral and IV Dye Allergy (Intermediate, Verified 07/24/18 10: 48) Hives metoprolol Allergy (Intermediate, Unverified 07/24/18 10:47) Hives furosemide [From Lasix] Allergy (Mild, Unverified 07/13/18 10:28) Rash insulin lispro [From Humalog U-100 Insulin] Allergy (Mild, Unverified 07/13/18 10:28) Other-Enter Comments iodine [Iodine] Allergy (Unknown, Verified 07/04/18 16:45) Hives RED DYES Allergy (Unknown, Uncoded 07/04/18 16:45) red pills Allergy (Uncoded 07/13/18 10:25) Rash - Home Medications Home Medications: Acetaminophen [Tylenol ES 500 mg (*)] 500 mg PO Q6H PRN 02/28/17 [Last Taken 02/01] Aspirin [Aspirin 81mg (*)] 81 mg PO DAILY 05/08/18 [Last Taken 07/23/18] Insulin Detemir [Levemir] 22 unit SQ DAILY18 05/08/18 [Last Taken 07/23/18] Insulin Detemir [Levemir] 24 unit SQ DAILY 05/08/18 [Last Taken 07/24/18 08:30 16 UNITS] Losartan Potassium [Cozaar 25 mg (*)] 25 mg PO DAILY 05/08/18 [Last Taken 07:15] Pravastatin Sodium [Pravachol] 10 mg PO DAILY 07/04/18 [Last Taken 07/24/18 07: 15] amLODIPine BESYLATE [Norvasc 2.5 mg (*)] 5 mg PO DAILY 07/04/18 [Last Taken 03/04 07:15] - NPO status NPO Since - Liquids (Date): 07/23/18 NPO Since - Liquids (Time): 07:15 NPO Since - Solids (Date): 07/23/18 NPO Since - Solids (Time): 19:00 - Smoking Hx Smoking Status: Never smoked - Family Anes Hx Family Hx Anesthesia Complications: none ANE Labs/Vital Signs - Vital Signs Blood Pressure: 149/75 Heart Rate: 76 Respiratory Rate: 19 O2 Sat (%): 98 Height: 160.02 cm Weight: 68.039 kg ANE Physical Exam - Airway Neck exam: FROM Mallampati Score: Class 2 Mouth exam: small mouth opening - Pulmonary Pulmonary: no respiratory distress, no rales or rhonchi - Cardiovascular Cardiovascular: regular rate and rhythym, no murmur, rub, or gallop - ASA Status ASA Status: III ANE Anesthesia Plan Anesthesia Plan: general endotracheal anesthesia Lines/Monitors: arterial line
[2018-07-24] MEDS ORDERED: MIDAZOLAM 2 MG/2 ML VIAL IVP ONE (13:49)
[2018-07-24] MEDS ORDERED: NALOXONE HCL 0.4 MG/ML INJ IVP PRN (16:06)
[2018-07-24] MEDS ORDERED: LR 500 ML IV PRN (16:06)
[2018-07-24] MEDS ORDERED: MEPERIDINE 25 MG/0.5 ML AMP IVP PRN (16:06)
[2018-07-24] MEDS ORDERED: HYDROmorphONE/DILAUDID 2 MG/ML INJ IVP PRN (16:06)
[2018-07-24] MEDS ORDERED: PROMETHAZINE HCL 25 MG/ML INJ IVP PRN (16:06)
[2018-07-24] MEDS ORDERED: HYDROCODONE/APAP 5/325 TAB PO PRN ×2 (16:06→16:31)
--- NOTE | 2018-07-24 16:30 | POSTOPPROG ---
Post Op Note Date of Operation: 07/24/18 Surgeon: Hu Stein Wood Carving Machine Operator: Adia Ricks Anesthesiologist: Judy Macias Anesthesia: GET(General Endotracheal) Pre-op Diagnosis: critical L carotid stenosis, recent R CEA, recent CVA Post-op Diagnosis: same Procedure: L CEA c EEG monitoring, use of shunt and patch closure, cervical LN bx x 2 Findings: good back flow, no EEG changes, awoke LOPEZ Inf/Abcess present in the surg proc area at time of surgery?: No EBL: 50-100 Complications: none Specimen(s): plaque and cervical nodes to pathology
[2018-07-24] MEDS ORDERED: ONDANSETRON 4 MG/2 ML VIAL IVP PRN (16:31)
[2018-07-24] MEDS ORDERED: ENALAPRILAT DIHYDRATE 1.25 MG/ML VIAL IVP PRN (16:31)
--- NOTE | 2018-07-24 16:37 | POSTANESTH ---
Post Anesthetic Evaluation Cardiovascular Status: Normal, Stable Respiratory Status: Normal, Stable Level of Consciousness/Mental Status: Can Participate in Eval Pain Control: Adequate, Prn Tx Ordered Nausea/Vomiting Control: Adequate, Prn Tx Ordered Complications Possibly Related to Anesthesia: None Noted (Moving all four extrem and stuck her tongue out on command for Dr. Stein. No compliants and no complicaitons. No bruising or chang from any of the facial tape or the Ett)
[2018-07-24] MEDS ORDERED: fentaNYL 100 MCG/2 ML INJ ONE (17:04)
[2018-07-24] MEDS: fentaNYL 100 MCG/2 ML INJ IVP PRN ×2 (17:05→17:12)
[2018-07-24] MEDS ORDERED: HYDROmorphONE/DILAUDID 2 MG/ML INJ ONE (17:16)
--- NOTE | 2018-07-24 17:21 | PDMN ---
Medical Necessity Medical necessity: Pt meets inpt criteria per MD order and [facility] [place] S-300, Carotid Endarterectomy, [facility] inpt only list. 72 y/o w/critical L carotid stenosis, recent R CEA, recent CVA admitted for L CEA w/EEG monitoring, use of shunt and patch closure, cervical LN bx X 2 and post-op care.
[2018-07-24] MEDS ORDERED: INSULIN GLARGINE 100 UNITS/ML UNIT SC SCH (18:00)
[2018-07-24] MEDS: HYDROmorphONE/DILAUDID 1 MG/ML INJ IVP PRN ×2 (18:10→22:51)
[2018-07-24] MEDS ORDERED: LEVEMIR 22 UNIT SC SCH (19:39)
[2018-07-24] MEDS: DOCUSATE SODIUM 100 MG CAP PO SCH ×2 (20:13→20:21)
[2018-07-24] MEDS: ACETAMINOPHEN 500 MG TAB PO PRN (21:40)
[2018-07-24] MEDS: NS 1,000 ML IV SCH (22:16)
[2018-07-25] MEDS: NS 1,000 ML IV SCH ×2 (06:15→11:28)
[2018-07-25] MEDS: ACETAMINOPHEN 500 MG TAB PO PRN ×3 (06:15→22:39)
[2018-07-25] MEDS ORDERED: D50W 25 GM/50 ML SYR IVP PRN ×2 (08:13→12:20)
[2018-07-25] MEDS: LEVEMIR 24 UNIT SC SCH (08:39)
[2018-07-25] MEDS: INSULIN REGULAR HUMAN 100 UNIT/ML UNIT SC SCH ×5 (08:39→21:52)
[2018-07-25] MEDS: ASPIRIN 81 MG CHEWABLE TAB PO SCH (08:40)
[2018-07-25] MEDS: PRAVASTATIN SODIUM 10 MG TAB PO SCH ×2 (08:40→09:23)
[2018-07-25] MEDS ORDERED: INSULIN GLARGINE 100 UNITS/ML UNIT SC SCH (09:00)
[2018-07-25] MEDS: DOCUSATE SODIUM 100 MG CAP PO SCH ×2 (09:23→21:51)
--- NOTE | 2018-07-25 09:25 | SOAPPROG ---
SOAP Progress Note Assessment/Plan: Assessment/Plan: 72 Y F s/p L CEA, hx R CEA, hx CVA. POD#1. Bradycardia. Largely asymptomatic although occasional dizziness. Holding coherent conversation while in 20's and 30's. Consulted cardiology who have seen patient in past. DM. Sliding scale added. If still difficult to control then consider hospitalist consult. Neurologically intact. Wound ok. BP stable. D/c'ed outer dressing. D/c arterial line. Dispo: continue hospital stay. Consider transfer to PCU pending cardiology recommendations. S: Minimal pain. Feels occasional dizziness. Thinks she needs to eat something. O: alert, nad inc cdi, no bruits, min swelling, min ecchymosis ctab rrr +murmur abd soft neuro grossly intact 07/25/18 09:20 Objective: Vital Signs Temp Pulse Resp BP Pulse Ox 36.8 C 54 L 16 104/44 L 96 07/24/18 18:00 07/25/18 08:00 07/25/18 08:00 07/25/18 08:00 07/25/18 08:00 Laboratory Results 07/25/18 04:30 07/25/18 04:30 07/24/18 07/25/18 07/26/18 05:59 05:59 05:59 Intake Total 3425 Output Total 550 Balance 2875 ICD10 Worksheet Patient Problems: Problems Problem Status Onset C. difficile colitis Acute Cirrhosis Acute Diverticulitis large intestine Acute
[2018-07-25] MEDS: LOSARTAN POTASSIUM 25 MG TAB PO SCH (10:31)
--- NOTE | 2018-07-25 10:34 | PDCARPN ---
Cardiology Progress Note Assessment/Plan: Assessment/plan: 72-year-old female with history of hypertension, vascular disease status post right CEA June 2018 and postoperative day 1. Left CEA. Other history includes stroke, atrial flutter status post ablation, moderate aortic stenosis, diabetes, and history of ASD repair. A LINQ was placed in early June to evaluate for occult atrial fibrillation. None has been seen. However, she has had frequent sinus pauses up to 5 sec all during sleeping hours. She is now demonstrating significant sinus bradycardia that is symptomatic when awake. 1. Sick sinus syndrome and symptomatic sinus bradycardia: She is having bradycardia, even in the setting of postoperative state and anemia. She now has a class 1 indication for permanent pacemaker implantation. I have discussed this with Adia Ricks of General surgery and Dr. Peres. Plan will be for pacemaker placement tomorrow, July 26. Risks benefits and alternatives were reviewed with the patient and her . She is on no agents that should cause bradycardia. LINQ monitor will be removed at the time of her pacemaker implant. Check EKG now. 2. Hypertension: Currently slightly hypotensive. Will repeat CBC. Hold antihypertensives. Encourage p.o.. 3. Vascular disease status post bilateral CEA over the past 3 weeks. She is on low-dose statin as well as aspirin. She has been intolerant of multiple other statins, so we will up titrate pravastatin as tolerated in the outpatient setting. 4. Valvular heart disease with moderate aortic stenosis: This will need to be followed serially. 5. Diabetes: Sliding scale. 07/25/18 10:31 07/25/18 10:35 Subjective: She reports intermittent sensation of feeling little dizzy, described as black spots in front of her eyes. This happens rarely at home. She has not had syncope at home. No chest pain or dyspnea here. Reviewed/Discussed With: family, other (Bess Iqbal; Dr. Peres) Objective: Vital Signs (8 Hrs) Pulse Resp BP Pulse Ox 07/25/18 08:00 54 L 16 104/44 L 96 07/25/18 06:00 56 L 15 103/49 L 95 07/25/18 04:00 54 L 12 103/49 L 98 Intake/Output (24 Hrs) 07/24/18 07/25/18 07/26/18 05:59 05:59 05:59 Intake Total 3425 Output Total 550 Balance 2875 Intake: Oral (ml) 820 IV Intake (ml) 975 IV Infused (ml) 1630 Ns 1,000 ml @ 100 mls/hr 1630 IV CONT ROEL Rx#: [id number] Output: Urine (ml) 500 Bedside Commode 500 Estimated Blood Loss (ml) 50 Other: Weight 68.039 kg Intake Quantity Yes Sufficient Number of Voids Bedside Commode 1 Fatigued. Pale. Regular rate and rhythm with 2/6 mid-peaking systolic ejection murmur at the base. Lungs clear to auscultation bilaterally wheeze rhonchi rales Abdomen soft and nontender extremities are warm and well perfused without edema CEA dressing left-sided clean dry and intact. No gross focal neurologic deficits. Appropriate mood and affect. Result Diagrams: 07/25/18 04:30 07/25/18 04:30 Telemetry: SR, brief SVT, periods of sinus bradycardia to the 30s ICD10 Worksheet Patient Problems: Problems Problem Status Onset C. difficile colitis Acute Cirrhosis Acute Diverticulitis large intestine Acute
--- NOTE | 2018-07-25 11:11 | ASMTCMCOM ---
CM Note CM Note Notes: Reviewed chart, pt admitted to hospital for scheduled carotid procedure and subsequently needs a pacemaker placed d/t bradycardia. Pacemaker placement to be done tomorrow the . Pt is otherwise independent and will dc home w/support of when medically stable. CM available for any changes. DC Plan: Independent Date Signed: 07/25/2018 11:10 AM Electronically Signed By:Lakeisha Couch RN
--- NOTE | 2018-07-25 11:42 | GOP ---
DATE OF OPERATION: 07/24/2018 SURGEON: Hu Stein MD JUNIOR ORACLE DBA: Adia Ricks PA-C. ANESTHESIOLOGIST: Dr. Macias. PREOPERATIVE DIAGNOSIS: Critical left carotid stenosis with history of cerebrovascular accident. POSTOPERATIVE DIAGNOSIS: Critical left carotid stenosis with history of cerebrovascular accident. PROCEDURE PERFORMED: Left carotid endarterectomy with EEG monitoring, deep cervical node . FINDINGS: The patient had no EEG changes during the procedure. She had adequate backflow from the i nternal carotid stump. Had a large ulcerated plaque obstructing 75% of the lumen into the left inter nal carotid. In addition, the positions of the internal and external carotids were rotated with inte rnal carotid being more medial than usual. ESTIMATED BLOOD LOSS: Negligible. DESCRIPTION OF PROCEDURE: The patient was taken to the operating room where she received satisfactor y general endotracheal anesthesia by Dr. Macias. She was systemically heparinized prior to induction of anesthesia. She was placed in supine position, prepped and draped in the usual sterile fashion. A curvilinear incision was made along the anterior border of the sternocleidomastoid muscle. Dissect ion carried down through the platysma, subcutaneous tissue and the cervical fascia was incised. The carotid arterial tree was dissected free. The common facial vein was multiply ligated and divided, a nd a large lymph node blocking the access to the carotid bifurcation was excised and removed. She had common carotid, external carotid and internal carotid arteries that were all dissected free a nd controlled with vessel loops. The hypoglossal nerve was identified and spared from injury. After adequate exposure was achieved additional heparin was given. After adequate circulation time, the v essels were occluded with vessel loops. Arteriotomy was made in the common carotid artery. A very t hick plaque extended up into the origin of the internal carotid. This was easily removed with endart erectomy with a good feathered end being achieved. Adequate backflow was present in the internal car otid artery. However, because of her previous history, a shunt was placed for protection. The arter y was further cleared of any debris and all vessels were eventually flushed. The arteriotomy was the n closed with a Dacron patch using a running Hemashield 7 suture. When the suture line was nearly co mplete the shunt was removed and all vessels were flushed. The suture line was completed and then fl ow was first established through the external carotid and then through the internal carotid artery. Suture line appeared to be hemostatic. Heparin was reversed with protamine. The wound was sprayed w ith some topical thrombin. Hemostasis was assured and the wounds were closed in layers using 3-0 Robe ryl for the cervical fascia and 3-0 Vicryl for the platysma and subcutaneous tissue, 4-0 Monocryl sub cuticular stitch for the skin. All layers were infiltrated with 0.5% Marcaine. COMPLICATIONS: No complications. /[id number]/MODL
[2018-07-25 15:29] LABS: PLATELET COUNT 129 10^3/uL (150-400)
--- NOTE | 2018-07-25 18:56 | GCON ---
CRITICAL CARE CONSULTATION. DATE OF CONSULTATION: 07/25/2018 REASON FOR CONSULTATION: Intensive care unit evaluation and medical management following carotid end arterectomy. HISTORY: The patient is a very pleasant 72-year-old who is status post left carotid endarterectomy y esterday. She had a right carotid endarterectomy done on 07/05/2018. She was transferred postoperat ively to the intensive care unit for management. She has a history of cardiac arrhythmias and has porter d episodes of significant bradycardia. She previously had tachyarrhythmias and was treated with abla tion in the past. She has multiple medical problems including aortic stenosis, chronic anemia, cirrh osis, a CVA without residual deficits, insulin-requiring diabetes mellitus, and a history of divertic ulitis. Postoperatively in the intensive care unit she has had some significant bradycardic episodes associated with transient hypotension. These have spontaneously resolved. She is being considered for pacemaker placement tomorrow. PAST MEDICAL HISTORY: Remarkable for issues as outlined above. Other problems include discoid lupus and a history of chronic headaches. DRUG ALLERGIES: Iodine/contrast, metoprolol, furosemide, lispro insulin, and red dye. HOME MEDICATIONS: Levemir, baby aspirin, pravastatin, Tylenol, amlodipine and losartan. SOCIAL HISTORY: The patient is , with a very supportive . Tobacco and alcohol are neg ative. PHYSICAL EXAMINATION: GENERAL: Reveals a pleasant woman who is resting comfortably in bed. Blood p ressure is approximately 105/45, heart rate 65 with sinus rhythm on the monitor. Respiratory rate is 16. She is on room air. HEENT: Unremarkable for lymphadenopathy or thyromegaly. There is no obvi ous jugular venous distention. Dressing is in place over the left carotid. CHEST: Clear bilaterally . HEART: Regular in rate and rhythm. There are no gallops. There is a prominent systolic aortic m urmur. P2 appears normal. ABDOMEN: Soft and nontender. Bowel sounds are present. There is no org anomegaly. EXTREMITIES: Without edema, cords, or tenderness. NEUROLOGIC: Examination is nonfocal. Mentation is intact. DATABASE: Hemoglobin is 8.3, hematocrit 26.8. Sodium is 135, potassium 5.0, CO2 17, BUN 30 with a c reatinine of 0.9. Glucoses have been consistently high today, running between 370 and 490. Calcium is 7.5. ASSESSMENT: 1. Status post left carotid endarterectomy. She is doing well. 2. Sick sinus syndrome with episodes of bradycardia. A pacemaker is being considered for tomorrow. Cardiology is involved. 3. Diabetes mellitus, on insulin with significantly high blood sugars. The etiology for her high loza gars is not altogether clear. I do not believe she has received any steroids. She is on insulin sli ding scale coverage. This will be continued, but at increased dosages. 4. History of medical problems as outlined above, including systemic hypertension, hyperlipidemia, m ultiple drug allergies, etc. Outpatient medications will be continued. 5. Anemia. The patient's hematocrit when she was last here was approximately 30. Preoperative lola tocrit was 34. She is 26.8 currently. Hemoglobin and hematocrit will be followed. PLAN AND RECOMMENDATIONS: The patient will be changed to high-dose sliding scale insulin a.c. and h. s. Levemir will be continued at current dosages for now, but may need to be increased. Antihyperten sives will be continued. Appropriate pain control will be maintained. Cardiology has been consulted and is making decisions regarding possible pacemaker placement tomorrow. The patient will be monitored in the Intensive Care Unit for now. We could consider transferring her to PCU status on telemetry if she continues to do well and if pacemaker placement is not going to be done tomorrow. Current medications will be continued. Laboratory will be followed. Insulin has be en increased regarding sliding scale and Levemir can be increased if needed. Further plans and recommendations will be made based on her progress over the next 12 to 24 hours. /[id number]/MODL
[2018-07-25] MEDS ORDERED: INSULIN REGULAR HUMAN 100 UNIT/ML UNIT SC ONE (20:00)
[2018-07-25] MEDS: LEVEMIR 22 UNIT SC SCH (21:13)
[2018-07-26 05:27] LABS: PLATELET COUNT 150 10^3/uL (150-400)
[2018-07-26 05:37] LABS: INR 1.03 (0.83-1.16); PROTIME(PATIENT) 13.7 SEC (12.0-15.0)
[2018-07-26] MEDS ORDERED: NS 1,000 ML IV ONE (06:00)
[2018-07-26] MEDS ORDERED: BACITRACIN IRRIGATION/NS 50,000 UNITS/1,000 ML BTL IRR ONE (06:00)
[2018-07-26] MEDS ORDERED: IOPAMIDOL (ISOVUE-300) 50 ML VIAL ONE (07:26)
[2018-07-26] MEDS ORDERED: fentaNYL 100 MCG/2 ML INJ ONE (07:27)
[2018-07-26] MEDS ORDERED: LIDOCAINE 1% 300 MG/30 ML SDV ONE ×2 (07:27→09:08)
[2018-07-26] MEDS ORDERED: MIDAZOLAM 2 MG/2 ML VIAL ONE (07:27)
[2018-07-26] MEDS ORDERED: LIDO/EPI 1% **for epidural** 30 ML SDV ONE (07:28)
[2018-07-26] MEDS ORDERED: BUPIVACAINE 0.5% 30 ML SDV ONE (07:28)
[2018-07-26] MEDS ORDERED: methylPREDNISolone SOD SUCC 125 MG/2 ML VIAL ONE (07:29)
[2018-07-26] MEDS ORDERED: FAMOTIDINE 20 MG/NACL/50 ML BAG IV ONE (07:29)
[2018-07-26] MEDS: INSULIN REGULAR HUMAN 100 UNIT/ML UNIT SC SCH ×4 (07:41→21:44)
--- NOTE | 2018-07-26 08:21 | PDPROPOC ---
Sedation Plan of Care Sedation Plan of Care: vital signs stable, mental status noted, patient educated of risks, benefits, alternatives, patient can tolerate sedation ASA Classification: ASA 2 Planned drugs: fentanyl, midazolam Mallampati Score: Class 2 Mallampati Reference Image: Patient passed 3-3-2 rule?: Yes (higher risk airway secondary to recent carotid surgery)
--- NOTE | 2018-07-26 08:23 | PDHPUP ---
History & Physical Update H&P update statement: This history and physical update is based on an assessment of the patient which was completed after admission or registration (within 24 hours), but prior to the surgery/procedure. H&P update: H&P reviewed & patient examined, changes noted (patient's heart rate has improved to 50-60 BPM)
[2018-07-26] MEDS ORDERED: NALOXONE HCL 0.4 MG/ML INJ ONE (08:50)
[2018-07-26] MEDS ORDERED: ENOXAPARIN 40 MG/0.4 ML SYR SC SCH (09:00)
--- NOTE | 2018-07-26 12:13 | EPPROC ---
Electrophysiology Procedure Note: PROCEDURE: 1. MRI conditional dual-chamber pacemaker insertion. 2. Explant of a Reveal LINQ recorder serial # [id number] DATE OF PROCEDURE: 07/26/2018 DEVICE: Biotronik Edora 8 DR-T Model #400049 , Serial #[id number] LEADS: The atrial lead is a Solia S 45: Model #[id number], Serial # [id number]. The ventricular lead is a Solia S 53: model #[id number], Serial #[id number] COMPLICATIONS: None PRODUCE WEIGHER: Eduar Peres MD INDICATION AND APPROPRIATE USE CRITERIA: Profound bradycardia and hemodynamically significant bradycardia post carotid endarterectomy and symptomatic sick sinus syndrome PROCEDURE IN DETAIL: After informed consent was obtained and n.p.o. status was confirmed, the region of the left subclavicular fossa was cleaned, prepped and draped in a sterile fashion. Approximately 30 mL of 1% lidocaine was utilized for local anesthesia. The skin was sharply incised with a #10 blade. Electrocautery and local pressure were used for hemostasis. Sharp and blunt dissection was used to form a pacemaker pocket overlying the pectoralis major fascia. The site over the Reveal LINQ recorder was anesthetized with 5 ml of 1% Lidocaine. The skin was sharply incised with a #10 blade and the LINQ device was removed with a hemostat. Hemostasis was confirmed and the skin was closed with 4 interrupted poncho. An 18-gauge Cook needle was used to gain access to the left subclavian vein x 2. J wires were advanced into the inferior vena cava under direct flouroscopic guidance. A 6-F peel-away sheath was advanced over the lateral wire. Wire and stylet were removed. The ventricular lead was manipulated with care into the RV apex under direct fluoroscopic guidance and screwed into place. The threshold was tested and found to be 0.6 V at 0.4 ms width. R-wave amplitude was measured at 9.50 mV. Lead impedance was 468 Ohms. The lead was sutured in place with #0 Ethibond. The medial wire was used to place a second peel-away sheath wire and dilator was removed and a second pacer lead was manipulated with care into the right atrial appendage and screwed into place. The threshold was 0.8 V at 0.4 ms width. P-wave amplitude was 2.3 mV, lead impedance was 409 Ohms. The peel away sheaths were removed and the leads were sutured in place with a #0 Ethibond. The pocket was thoroughly flushed and checked for bleeding. Hemostasis was established. The antibiotic soaked gauze was removed from the pocket. The atrial lead serial number was checked and placed in the upper pole lead housing of the pulse generator and set screw firmly applied. The procedure was repeated for the RV lead in the lower pole lead housing. The device was placed in the pocket and sutured in place with #0 Silk. The skin was closed with a 3-layered 3 -0 Vicryl vertical mattress interrupted suture, 2-0 Vicryl horizontal mattress interrupted suture, and an interrupted staple repair with excellent wound edge opposition and hemostasis documented. The patient returned to the post cath recovery unit in good and stable condition where a stat postoperative chest x- ray and EKG will be obtained. FINAL IMPRESSION: Successful dual-chamber pacemaker insertion without immediate complication for indication of syncope with documented sinus arrest and pauses of up to 5 seconds. Patient Problems: Problems Problem Status Onset Cirrhosis Acute C. difficile colitis Acute Diverticulitis large intestine Acute
[2018-07-26] MEDS: DOCUSATE SODIUM 100 MG CAP PO SCH ×2 (14:19→21:36)
[2018-07-26] MEDS: LEVEMIR 24 UNIT SC SCH (14:24)
--- NOTE | 2018-07-26 14:34 | CPEKG ---
Test Reason : OPEN Blood Pressure : / mmHG Vent. Rate : 063 BPM Atrial Rate : 063 BPM P-R Int : 152 ms QRS Dur : 088 ms QT Int : 438 ms P-R-T Axes : 047 -02 152 degrees QTc Int : 449 ms Sinus rhythm Abnormal R-wave progression, early transition LVH with secondary repolarization abnormality Confirmed by Ashutosh Arzate ([id number]) on 07/26/2018 2:34:11 PM Referred By: Confirmed By:Ashutosh Arzate
--- NOTE | 2018-07-26 14:40 | CPEKG ---
Test Reason : OPEN Blood Pressure : / mmHG Vent. Rate : 061 BPM Atrial Rate : 061 BPM P-R Int : 161 ms QRS Dur : 093 ms QT Int : 429 ms P-R-T Axes : 030 010 156 degrees QTc Int : 432 ms Atrial-paced complexes Repol abnrm suggests ischemia, anterolateral Confirmed by Ashutosh Arzate ([id number]) on 07/26/2018 2:40:07 PM Referred By: Confirmed By:Ashutosh Arzate
[2018-07-26] MEDS: ASPIRIN 81 MG CHEWABLE TAB PO SCH (15:04)
[2018-07-26] MEDS: PRAVASTATIN SODIUM 10 MG TAB PO SCH (15:04)
[2018-07-26] MEDS: LOSARTAN POTASSIUM 25 MG TAB PO SCH (15:04)
[2018-07-26] MEDS: LEVEMIR 22 UNIT SC SCH (22:00)
[2018-07-27] MEDS: ACETAMINOPHEN 500 MG TAB PO PRN ×2 (03:06→10:57)
[2018-07-27] MEDS: INSULIN REGULAR HUMAN 100 UNIT/ML UNIT SC SCH ×2 (08:03→12:31)
[2018-07-27] MEDS: LOSARTAN POTASSIUM 25 MG TAB PO SCH (08:14)
[2018-07-27] MEDS: ASPIRIN 81 MG CHEWABLE TAB PO SCH (08:14)
[2018-07-27] MEDS: PRAVASTATIN SODIUM 10 MG TAB PO SCH (08:15)
[2018-07-27] MEDS: DOCUSATE SODIUM 100 MG CAP PO SCH (08:17)
[2018-07-27] MEDS: LEVEMIR 24 UNIT SC SCH (08:18)
--- NOTE | 2018-07-27 09:09 | SOAPPROG ---
SOAP Progress Note Assessment/Plan: Assessment: 72 y/o F s/p L CEA POD #3, now s/p pacemaker placement for bradycardia POD #1 Insulin dependent DM. High blood sugars. Medicine team will consult today. S: Doing well overall. Pain controlled. O: Alert Afebrile VSS Neck: incision site cdi RRR No increased WOB Plan: Dispo home likely soon. Will discuss with cards and medicine. 07/27/18 09:05 Objective: Vital Signs Temp Pulse Resp BP Pulse Ox 36.6 C 61 18 133/81 H 92 07/27/18 07:25 07/27/18 07:25 07/27/18 07:25 07/27/18 07:25 07/27/18 07:25 Laboratory Results 07/26/18 05:10 07/26/18 05:10 07/26/18 07/27/18 07/28/18 05:59 05:59 05:59 Intake Total 1780 850 Output Total 1035 Balance 745 850 PT 13.7 SEC (12.0-15.0) 07/26/18 05:10 INR 1.03 (0.83-1.16) 07/26/18 05:10 ICD10 Worksheet Patient Problems: Problems Problem Status Onset C. difficile colitis Acute Cirrhosis Acute Diverticulitis large intestine Acute
[2018-07-27] MEDS ORDERED: POLYETHYLENE GLYCOL 3350 17 GM PKT PO PRN (09:42)
--- NOTE | 2018-07-27 11:22 | PDCARPN ---
Cardiology Progress Note Chief Complaint: SSS/pauses Assessment/Plan: Assessment: 72-year-old female with history of hypertension, vascular disease status post right CEA June 2018 and postoperative day 3 Left CEA. Other history includes stroke, atrial flutter status post ablation, moderate aortic stenosis, diabetes, and history of ASD repair. A LINQ was placed in early June to evaluate for occult atrial fibrillation. None has been seen. However, she has had frequent sinus pauses up to 5 sec all during sleeping hours. She is now demonstrating significant sinus bradycardia that is symptomatic when awake. #. Sick sinus syndrome and symptomatic sinus bradycardia: She is having bradycardia, even in the setting of postoperative state and anemia. She now has a class 1 indication for permanent pacemaker implantation. - s/p ppm POD #1 - no pain at pacer site - OK to discharge from a cardiology perspective #. Hypertension: BP looks ok - continue home meds as present #. Vascular disease status post bilateral CEA over the past 3 weeks. She is on low-dose statin as well as aspirin. She has been intolerant of multiple other statins, so we will up titrate pravastatin as tolerated in the outpatient setting. #. Valvular heart disease with moderate aortic stenosis: This will need to be followed serially. #. Diabetes: Sliding scale. Plan: - OK to discharge from cardiac perspective. 07/27/18 11:18 Subjective: No arm pain. Telemetry shows SR. CXR stable. Objective: Vital Signs (8 Hrs) Temp Pulse Resp BP Pulse Ox 07/27/18 07:25 97.9 F 61 18 133/81 H 92 Intake/Output (24 Hrs) 07/26/18 07/27/18 07/28/18 05:59 05:59 05:59 Intake Total 1780 850 Output Total 1035 Balance 745 850 Intake: Oral (ml) 1150 850 IV Infused (ml) 630 Ns 1,000 ml @ 100 mls/hr 630 IV CONT ROEL Rx#: [id number] Output: Urine (ml) 1035 Bedside Commode 1035 Other: Number of Voids Bedside Commode 1 Toilet 2 Result Diagrams: 07/26/18 05:10 07/26/18 05:10 EKG: A-paced - Physical Exam Constitutional: no apparent distress Eyes: anicteric sclera Ears, Nose, Mouth, Throat: moist mucous membranes Cardiovascular: regular rate and rhythm, systolic murmur Respiratory: clear to auscultate bilat Skin: no edema, other (mild edema at pacer site/ L hand edematous) Neurologic: AAOx3 Psychiatric: cooperative ICD10 Worksheet Patient Problems: Problems Problem Status Onset C. difficile colitis Acute Cirrhosis Acute Diverticulitis large intestine Acute
[2018-07-27 11:32] VITALS: BP 151/67
--- NOTE | 2018-07-29 14:32 | CPEKG ---
Test Reason : OPEN Blood Pressure : / mmHG Vent. Rate : 062 BPM Atrial Rate : 062 BPM P-R Int : 155 ms QRS Dur : 090 ms QT Int : 419 ms P-R-T Axes : 055 018 168 degrees QTc Int : 426 ms Atrial-paced complexes Repol abnrm suggests ischemia, anterolateral Confirmed by Ashutosh Arzate ([id number]) on 07/29/2018 2:31:33 PM Referred By: Confirmed By:Ashutosh Arzate
== END 2018-07-27 13:50 | disposition home or self-care (01) | DRG 39 ==
LOC: F2W 10:02 → F2N 11:46 → F2W 07-26 11:45
PROVIDERS: ADMIT Surgery; ATTEND Surgery
PROC: 07B20ZX Excision of Left Neck Lymphatic, Open Approach, Diagnostic (ICD-10-PCS; principal; 2018-07-24 11:45)
PROC: 03CL0ZZ Extirpation of Matter from Left Internal Carotid Artery, Open Approach (ICD-10-PCS; principal; 2018-07-24 11:45)
PROC: 0JH606Z Insertion of Pacemaker, Dual Chamber into Chest Subcutaneous Tissue and Fascia, Open Approach (ICD-10-PCS; 2018-07-26)
PROC: 0JPT02Z Removal of Monitoring Device from Trunk Subcutaneous Tissue and Fascia, Open Approach (ICD-10-PCS; 2018-07-26)
PROC: 02HK3JZ Insertion of Pacemaker Lead into Right Ventricle, Percutaneous Approach (ICD-10-PCS; 2018-07-26)
PROC: 02H63JZ Insertion of Pacemaker Lead into Right Atrium, Percutaneous Approach (ICD-10-PCS; 2018-07-26)
DX: I65.22 Occlusion and stenosis of left carotid artery (principal); I49.5 Sick sinus syndrome; D64.9 Anemia, unspecified; E11.9 Type 2 diabetes mellitus without complications; I69.319 Unspecified symptoms and signs involving cognitive functions following cerebral infarction; E78.5 Hyperlipidemia, unspecified; K74.60 Unspecified cirrhosis of liver; L93.0 Discoid lupus erythematosus; I35.0 Nonrheumatic aortic (valve) stenosis; I10 Essential (primary) hypertension; Z79.4 Long term (current) use of insulin
CPT/HCPCS: 82947-QW; C1768; C1785; C1898; J0690; J1100; J1170; J1200; J1644; J1815; J2250; J2310; J2405; J2704; J2720; J2930; J3010; Q9967

== ENCOUNTER → 2018-08-28 | Outpatient (CLI) | payer OTHER | LOC: FIMAGING 09:39 | PROVIDERS: ATTEND Internal Medicine | DX: K74.69 Other cirrhosis of liver (principal); Z90.49 Acquired absence of other specified parts of digestive tract ==

== ENCOUNTER 2018-11-29 07:52 | Day surgery (SDC) | payer OTHER ==
[2018-11-29] MEDS ORDERED: ASPIRIN EC 325 MG TAB PO ONE (08:01)
[2018-11-29] MEDS ORDERED: NS 1,000 ML IV ONE (08:01)
[2018-11-29] MEDS ORDERED: DIAZEPAM 5 MG TAB PO ONE (08:01)
[2018-11-29] MEDS ORDERED: diphenhydrAMINE 25 MG CAP PO ONE (08:01)
[2018-11-29] MEDS ORDERED: FAMOTIDINE 20 MG TAB PO ONE (08:01)
[2018-11-29] MEDS ORDERED: FAMOTIDINE 20 MG/NACL 50 ML IV ONE (08:30)
[2018-11-29] MEDS ORDERED: methylPREDNISolone SOD SUCC 125 MG/2 ML VIAL IVP ONE (08:30)
[2018-11-29] MEDS ORDERED: MIDAZOLAM 2 MG/2 ML VIAL ONE (09:02)
[2018-11-29] MEDS ORDERED: fentaNYL 100 MCG/2 ML INJ ONE (09:02)
[2018-11-29] MEDS ORDERED: HEPARIN 10,000 UNIT/10 ML MDV (1,000 UNIT/ML) ONE (09:02)
[2018-11-29] MEDS ORDERED: VERAPAMIL 5 MG/2 ML VIAL ONE (09:02)
[2018-11-29] MEDS ORDERED: LIDOCAINE 1% 300 MG/30 ML SDV ONE (09:02)
[2018-11-29] MEDS ORDERED: IOPAMIDOL (ISOVUE 370) 100 ML BTL IV ONE (09:03)
[2018-11-29 09:14] LABS: PLATELET COUNT 143 10^3/uL (150-400)
[2018-11-29 09:32] LABS: INR 0.96 (0.83-1.16); PROTIME(PATIENT) 12.4 SEC (12.0-15.0)
--- NOTE | 2018-11-29 09:35 | PDPROPOC ---
Sedation Plan of Care Sedation Plan of Care: vital signs stable, mental status noted, patient educated of risks, benefits, alternatives, patient can tolerate sedation ASA Classification: ASA 3 Planned drugs: fentanyl, midazolam Mallampati Score: Class 2 Mallampati Reference Image: Patient passed 3-3-2 rule?: Yes
[2018-11-29] MEDS ORDERED: ETOMIDATE 40 MG/20 ML INJ ONE (10:25)
[2018-11-29] MEDS ORDERED: niCARdipine 25 MG/10 ML VIAL IV ONE (10:25)
--- NOTE | 2018-11-29 11:56 | CPIP ---
[f rep st] INVASIVE CARDIAC PROCEDURE DATE OF PROCEDURE: 11/29/2018 PROCEDURE PERFORMED: 1. Right heart catheterization. 2. Coronary catheterization. 3. Selective coronary angiography. COMPLICATIONS: None. SOAPING DEPARTMENT SUPERVISOR: Eduar Peres MD INDICATIONS/APPROPRIATE USE CRITERIA: The patient is noted to have severe aortic stenosis with a pea k gradient of 70 mmHg and suspected aortic valve area of less than 0.8 cm2 who presents for pre-aorti c valve replacement analysis of her coronary circulation. The patient has had carotid endarterectomy bilaterally earlier this year. PROCEDURE IN DETAIL: After informed consent was obtained, n.p.o. status was confirmed, the region of the right groin, right wrist, and right antecubital fossa were cleaned prepped and draped in sterile fashion. A 5-Cymraes sheath was placed to the right radial artery and to the antecubital fossa with single anterior puncture of those vessels. The patient then underwent a right heart catheterization with a balloon tipped [place]-Abner catheter. P A pressure was noted to be 49/19, mean of 30. Pulmonary catheter wedge pressure was 17, A-wave 20, V -wave 19. RV pressure 43/7 with an end-diastolic pressure of 15. RA pressure was 8, A-wave 11, V-wa ve 10. Simultaneous saturations were obtained in the aorta from the right radial catheter. Sat was 91.7, PA simultaneously was 69.7, IVC 75.6, and SVC of 72. The [place] cardiac output was 4.72, [place] ca rdiac index 2.84 at a heart rate of 65 beats per minute. The pulmonary vascular resistance and Torres unit was 3.47, consistent with elevated pulmonary vascular resistance, and the patient has evidence of pulmonary hypertension as noted. We turned our attention to the coronary circulation. A JR4 catheter was used to selectively intubate the right coronary artery. This demonstrated a codominant system with a very small right coronary a rtery approximately 2 mm in size. There are 2 lesions of 80%, and then, a subsequent lesion of 90% p roximal to the branch, which goes to the distal portion of the PDA. There is RENETTA-3 flow to the dist al vessel. We were unable to perform selective coronary geography of the left coronary system from t he right wrist, secondary to brachial artery spasm even with a 4-Cymraes catheter, so the procedure wa s abandoned and we proceeded with a right groin approach. A 5-Cymraes sheath was placed using a micropuncture set and modified Seldinger technique. A 5-Cymraes JL3.5 catheter was then used for diagnostic angiography. The left main coronary lumen is approximate ly 6 mm in size and trifurcates into an LAD, ramus, and circumflex system. In the AP caudal projecti on, the proximal LAD has an eccentric plaque in its proximal segment of approximately 40% to 50%, whi ch is angled toward the direction of flow. The LAD thereafter gives rise to an important diagonal br anch. There is an 80% stenosis of the LAD distal to the diagonal takeoff. RENETTA-3 flow is noted in t he LAD diagonal system. The ramus vessel is small and has a probable ostial stenosis of at least 50% at its takeoff from the left main. The circumflex proper is codominant as the circumflex does give rise to vessels that provide blood flow to the base of the inferior septum. The circumflex is approx imately 2.75 mm in size and there is a subtotal occlusion and 90% obstruction of the circumflex prior to the circumflex proper and obtuse marginal bifurcation. A second 50% lesion is in the origin of t he circumflex obtuse marginal, which is a large vessel and probably a good target for bypass if carol valdovinos. The patient tolerated the procedure well without immediate complication and will return to the post c ath recovery unit in good and stable condition, where a postoperative EKG will be obtained. The nahum ent underwent successful Angio-Seal arteriotomy repair, as well as a TR band arteriotomy repair of th e right wrist as well. The patient will be referred to Dr. Lyons and Dr. Rodriguez for possible SAVR with bypass versus possib le TAVR with multivessel stent implantation. Given her history of prior atrioseptal defect repair an d the fact that she has pulmonary hypertension, her surgical risk as an open case will need to be fac tored into the decision as to whether or not she should undergo SAVR with bypass with TORREZ to the LAD , vein graft to the circumflex OM, and possibly to the right and diagonal as well. The other option if she is a TAVR candidate on the basis of her relatively small iliacs, would be to perform TAVR and then consider multivessel stenting to improve her heart circulation. /[id number]/MODL
[2018-11-29] MEDS ORDERED: NON-FORMULARY NEW DRUG (Insulin Detemir [Levemir] 30 UNIT) SQ SCH (18:00)
[2018-11-29] MEDS ORDERED: TRIAMCINOLONE 0.1% 15 GM CRTUBE TP SCH (21:00)
[2018-11-30] MEDS ORDERED: ASPIRIN 81 MG CHEWABLE TAB PO SCH (09:00)
[2018-11-30] MEDS ORDERED: IRBESARTAN 75 MG TAB PO SCH (09:00)
[2018-11-30] MEDS ORDERED: PRAVASTATIN SODIUM 10 MG TAB PO SCH (09:00)
--- NOTE | 2018-12-03 15:27 | CPEKG ---
Test Reason : OPEN Blood Pressure : / mmHG Vent. Rate : 072 BPM Atrial Rate : 071 BPM P-R Int : 158 ms QRS Dur : 083 ms QT Int : 405 ms P-R-T Axes : 031 -02 114 degrees QTc Int : 444 ms Atrial-paced complexes Abnormal R-wave progression, early transition LVH with secondary repolarization abnormality Confirmed by Santi Ricci ([id number]) on 12/03/2018 3:26:44 PM Referred By: Eduar Peres Confirmed By:Santi Ricci
== END 2018-11-29 14:58 | disposition home or self-care (01) ==
LOC: FCATH 07:52
PROVIDERS: ATTEND Internal Medicine Cardiovascular Disease
DX: I35.0 Nonrheumatic aortic (valve) stenosis (principal); I10 Essential (primary) hypertension; E11.9 Type 2 diabetes mellitus without complications; Z86.73 Personal history of transient ischemic attack (TIA), and cerebral infarction without residual deficits; E78.5 Hyperlipidemia, unspecified
CPT/HCPCS: 93005; 93460; C1769; C1760; J1200; J1644; J2250; J2930; J3010; Q9967

== ENCOUNTER 2018-12-18 06:28 | Inpatient (IN) | payer OTHER | END 2019-01-14 15:45 | LOC: F2W 06:28 → F2N 12-26 09:55 → F2W 12-23 12:45 → F2N 10:15 ==